=== PATIENT | male | born 1970 | race Caucasian/White ===

== ENCOUNTER 2020-12-21 11:48 | Emergency (ER) | payer OTHER, SELFPAY ==
--- NOTE | ~2020-12-21 | XR_ITS ---
EXAMINATION: XR HAND, LEFT CLINICAL INFORMATION: Trauma, crush injury. COMPARISON: None TECHNIQUE: PA, lateral, and oblique views of the left hand. FINDINGS: There is a dorsal soft tissue wound at level metacarpal neck. There is no visible radiopaque soft tissue foreign body. The underlying bony structures appear intact without acute fracture or destructive process or dislocation. There may be old healed fracture shaft fifth metacarpal. No acute radiolucent fracture line. No focal arthropathy. No erosive changes. XR/XR hand LT min 3V IMPRESSION: Dorsal soft tissue wound with overlying dressing. No visible fracture, dislocation, or radiopaque soft tissue foreign body.
[2020-12-21 11:51] VITALS: BP 168/101; PULSE 105; RESP 18; TEMP 36.1; O2SAT 94; BMI 27.3
--- NOTE | 2020-12-21 14:14 | ED.GENADULT ---
HPI - General Adult General Chief complaint: Wound/Laceration Stated complaint: lac lt hand Source: patient Mode of arrival: ambulatory Limitations: no limitations History of Present Illness HPI narrative: 50-year-old male with history of hypertension is here today after sustaining work accident. He was working and large metal pipe fell off on his left hand. Patient does not remember when he had his last tetanus booster. Patient reports pain when moving his 3rd and 4th finger. Patient denies any other injury or sx. . Onset (ago): hour(s) Location: right and upper extremity (Hand) Severity: moderate Severity scale (1-10): 10 Quality: aching Pain Consistency: constant Relieving factors: immobilization Related Data Previous Rx's Medication Instructions Recorded cephalexin 500 mg capsule 500 mg PO QID 7 Days #28 cap 12/21/20 Allergies Allergy/AdvReac Type Severity Reaction Status Date / Time No Known Allergies Allergy Unverified 11/25/19 15:16 [No Known Allergies*] Review of Systems Review of Systems: Constitutional : No Weight loss, No Fever, No Chills, No Night Sweats, No Fatigue, No Malaise ENT/Mouth : No Hearing loss, No Ear Pain, No Nasal Congestion, No Sinus Pain, No Hoarseness, No sore throat, No Rhinorrhea, No Swallowing Difficulty Eyes: No Eye Pain, No Swelling, No Redness, No Foreign Body, No Discharge, No Vision Changes Cardiovascular : No Chest Pain, No SOB, No Dyspnea on Exertion, No Orthopnea, No Edema, No Palpitations Respiratory : No Cough, No Sputum, No Wheezing, No Smoke Exposure, No Dyspnea Gastrointestinal : No Nausea, No Vomiting, No Diarrhea, No Constipation, No abdominal Pain, No Hematochezia, No Melena Genitourinary : no irregular bleeding, No Dysuria, No Urinary Frequency, No Hematuria, No Urinary Incontinence, No Urgency, No Flank Pain, No Urinary Flow Changes, No Hesitancy Musculoskeletal : No joint pain, No Myalgias, No Joint Swelling Skin : No Skin Lesions, No rash, right hand laceration Neuro : No Weakness, No Numbness, No Paresthesias, No Loss of Consciousness, No Dizziness, No Headache Yes all other systems are reviewed and are negative [facility] Social History Social History Alcohol intake: current Patient Tobacco Use Status: Current everyday Tobacco user Use of substances other than those prescribed or required for medical reasons: No Advance Directives: No Advance Directives Information Provided: Yes Physical Exam Vital Signs: Vital Signs: Last Vital Signs Temp 97 F 12/21/20 11:51 Pulse 80 12/21/20 14:43 Resp 20 12/21/20 14:43 BP 173/114 H 12/21/20 14:43 Pulse Ox 97 12/21/20 14:43 Body Mass Index 27.3 Const: General: healthy appearing, no acute distress and well developed Nutritional Appearance: well nourished Orientation/consciousness: patient oriented x3 HENMT: Head: Yes normal to inspection, Yes normocephalic and Yes atraumatic Neck: Neck: Yes normal visual inspection, Yes full ROM and Yes trachea midline Thyroid: Thyroid normal Resp: Effort & Inspection: normal respiratory effort and able to speak in complete sentences Auscultation: clear to auscultation bilaterally Cardio: Rate: regular rate Rhythm: regular rhythm GI: Inspection: Yes normal to inspection and No distended Palpation (GI): No hepatosplenomegaly present Auscultation: normal bowel sounds Skin: General skin exam: elasticity normal, turgor normal, dry skin and other (Laceration right hand) Neuro: General: patient oriented x3 Extrem: Right upper extremity: Extremity exam: right hand (Right hand laceration decreased ROM to 3rd and 4th finger) Left upper extremity: normal to inspection, full ROM and normal capillary refill Course Course Course Narrative: 50-year-old male with past medical history of hypertension is here today after work injury. Large metal pipe fell on to his left hand. 3.5 cm linear laceration to the top of his hand just below 2nd and 3rd knuckle. Bleeding under control. Patient reports that he does not remember when he had his last tetanus. Tetanus, x-ray, medicated with lidocaine and ibuprofen set up for suture. Reevaluation(s) Reevaluation #1: X-ray negative for any acute findings. Area sutured,will apply Xeroform dressing. Patient can return for suture removal in 7-10 days. Cephalexin for 7 days given. First dose given in the ER Procedures Laceration Laceration 1: Site: hand Side (If applicable): left Medical Decision Making Imaging Data Left hand x-ray: Attestation: I personally reviewed and interpreted this imaging study as follows: Radiologist's impression: FINDINGS: There is a dorsal soft tissue wound at level metacarpal neck. There is no visible radiopaque soft tissue foreign body. The underlying bony structures appear intact without acute fracture or destructive process or dislocation. There may be old healed fracture shaft fifth metacarpal. No acute radiolucent fracture line. No focal arthropathy. No erosive changes.? Discharge Plan Discharge Clinical Impression: Laceration Patient Disposition: Home, Self-Care Instructions: Head Laceration (ED) Additional Instructions: You were seen here today after sustaining an injury to your left hand. Your laceration was sutured. Your hand x-ray was negative for any acute abnormalities. Make sure you keep the area clean. You were given 1st dose of antibiotic here and please that you complete all of your antibiotics. Your sutures should come out in 7-10 days. You may go to your primary care provider to get them removed or come back here to get them removed. If your see any redness, swelling, increased pain you may return to emergency department or call your PCP. You may return to emergency department if your symptoms will get worse or if you experience any additional concerning symptoms Prescriptions: New cephalexin 500 mg capsule 500 mg PO QID 7 Days Qty: 28 RF: 0 Interventions: ED Discharge Assessment Last Done: 12/21/20 16:10 Discharge Date/Time: 12/21/20 16:13
[2020-12-21] MEDS: Diphth,Pertus(ACell),Tet Adult 0.5 ML SYRINGE IM (14:37)
[2020-12-21] MEDS: Ibuprofen 600 MG TABLET PO (14:38)
[2020-12-21] MEDS: Lidocaine HCl 2 % MPF 5 ML VIAL INFILTRATI (14:41)
[2020-12-21 14:43] VITALS: BP 173/114; PULSE 80; RESP 20; O2SAT 97
[2020-12-21] MEDS: cephALEXin 500 MG CAPSULE PO (15:45)
== END 2020-12-21 16:13 | disposition home or self-care (01) ==
PROVIDERS: Emergency Provider Emergency Medicine
DX: S61.412A Laceration without foreign body of left hand, initial encounter (principal); I10 Essential (primary) hypertension; W20.8XXA Other cause of strike by thrown, projected or falling object, initial encounter; Y93.9 Activity, unspecified; Y92.89 Other specified places as the place of occurrence of the external cause; Y99.0 Civilian activity done for income or pay
CPT/HCPCS: 12002; 73130; 90471; 90715; 99284

== ENCOUNTER 2022-11-03 16:56 | Emergency (ER) | payer OTHER, SELFPAY ==
--- NOTE | ~2022-11-03 | US_ITS ---
EXAMINATION: US ABDOMEN LIMITED CLINICAL INFORMATION: Right upper quadrant pain. COMPARISON: None available. TECHNIQUE: Real-time imaging of the right upper quadrant abdominal viscera. FINDINGS: PANCREAS: The visualized portion of the pancreas head and body are normal, portion of the pancreatic body and tail, not visualized are obscured by bowel gas. LIVER: There is a small cyst in the right lobe of the liver 0.9 x 0.9 x 1.1 cm. The liver is normal in size. The liver contour is normal. Increased echogenicity of the liver parenchyma, this can be seen in the setting of hepatic steatosis or liver parenchymal disease. No focal hepatic lesion. There is no intrahepatic biliary duct dilatation seen. GALLBLADDER: Normal. The gallbladder is physiologically distended without evidence of stones, sludge, polyps, wall thickening or pericholecystic fluid. COMMON BILE DUCT: Normal in caliber measuring 0.6 cm in diameter. RIGHT KIDNEY: Normal. No hydronephrosis. No renal calculi or focal parenchymal lesions. The kidney measures 9.7 cm in maximum dimension. FREE FLUID: None. US/US abdomen limited IMPRESSION: - No ultrasound evidence of gallbladder disease or gallstones. - Increased echogenicity of the liver parenchyma, this can be seen in the setting of hepatic steatosis or liver parenchymal disease. - There is a small cyst in the right lobe of the liver 1.1 cm.
--- NOTE | ~2022-11-03 | XR_ITS ---
EXAMINATION: XR CHEST CLINICAL INFORMATION: Right-sided chest pain, shortness of breath COMPARISON: 04/17/2017 TECHNIQUE: 2 views of the chest were obtained. FINDINGS: No significant abnormality is noted involving the heart, lungs, mediastinum, bony thorax or soft tissues. XR/XR chest 2V IMPRESSION: Unremarkable examination.
--- NOTE | ~2022-11-03 | CT_ITS ---
EXAMINATION: CT abdomen pelvis w IV con CLINICAL INFORMATION: Reason for Exam RLQ pain COMPARISON: No prior CT available for comparison. TECHNIQUE: Multidetector volumetric imaging was performed from the superior aspect of the liver through the pubic symphysis 85 mL Omnipaque 350 injected Sagittal and coronal reformatted images were obtained on the technologist's workstation. This CT examination was performed using dose optimization techniques as appropriate, variously including the following: *Automated exposure control *Adjustment of mA and/or kV according to patient size (this includes techniques or standardized protocols for targeted exams where dose is matched to indication/reason for exam; i.e. extremities or head) *Use of iterative reconstruction technique DLP: 550 mGy-cm FINDINGS: LOWER THORAX: 5 mm nodule left lower lobe image 67 series 4. HEPATOBILIARY: Cyst left lobe of the liver segment 4 1.4 cm. Few other scattered tiny hypodensities subcentimeter, too small to characterize most commonly developing liver cyst as well. No suspicious solid liver lesion. GALLBLADDER: Gallbladder unremarkable. SPLEEN: Spleen is normal in size. PANCREAS: Small atrophic pancreas. STOMACH AND GASTROINTESTINAL TRACT: Stomach is distended filled with fluid and some air. Mild sigmoid diverticulosis without CT evidence of acute diverticulitis. Normal appendix. ADRENALS: No adrenal nodules. KIDNEYS/URETERS: Small 3 mm nonobstructing stone upper calyx left kidney. No hydronephrosis. Perinephric fat are clear. No hydronephrosis, solid mass lesions. URINARY BLADDER: Partially decompressed. PELVIC VISCERA: Unremarkable PERITONEUM: No free air or fluid. LYMPH NODES: No lymphadenopathy. VASCULAR:Abdominal aorta normal in size, no aneurysm found. BONES, ABDOMINAL WALL AND SOFT TISSUES: Age-appropriate changes of the spine and skeletal system, no destructive osteolytic or osteosclerotic bone lesion found CT/CT abdomen pelvis w IV con IMPRESSION: - No CT evidence of acute intra-abdominal process to explain patient's pain symptoms. Normal appendix. - Mild sigmoid diverticulosis without CT evidence of acute diverticulitis. -There is 5 mm nodule left lower lobe. This has not changed from prior CT chest from 04/17/2017 favoring benign. No follow-up is required. - Distended stomach filled with fluid and some air. - Atrophic pancreas. - Liver cysts. - Nonobstructing 3 mm stone upper calyx left kidney.
[2022-11-03 17:21] VITALS: BP 162/100; PULSE 92; RESP 18; TEMP 36.4; O2SAT 94; BMI 27.3
--- NOTE | 2022-11-03 17:22 | ED.ABDPAIN ---
HPI - Abdominal Pain General Chief Complaint: Abdominal Pain Stated Complaint: appendix pain? Time Seen by Provider: 11/03/22 18:45 Source: patient Mode of arrival: ambulatory Limitations: no limitations History of Present Illness HPI narrative: 52 yo male with history of DM recently started metformin here with complaints of right lower quadrant abdominal pain x 1 day with no vomiting/fevers/urinary symptoms. +diarrhea since starting metformin. No previous abdmominal surgeries Related Data Previous Rx's Medication Instructions Recorded cephalexin 500 mg capsule 500 mg PO QID 7 days #28 caps 12/21/20 Allergies Allergy/AdvReac Type Severity Reaction Status Date / Time bee pollen [bee stings] Allergy Anaphylaxis Verified 11/03/22 17:25 walnut Allergy Anaphylaxis Verified 11/03/22 17:25 Review of Systems Review of Systems Yes all other systems are reviewed and are negative Constitutional: Reports no additional constitutional complaints, Denies body ache(s), Denies chills, Denies fever(s), Denies headache(s) and Denies weakness Eyes: Reports no additional eye complaints and Denies change in vision Reports system reviewed and no additional complaints, except as documented, Denies dizziness, Denies headache(s), Denies nasal congestion, Denies nasal discharge and Denies neck pain Cardiovascular: Reports no additional cardiovascular complaints, Denies chest pain, Denies leg edema and Denies dyspnea Respiratory: Reports no additional respiratory complaints, Denies cough and Denies dyspnea Gastrointestinal: Reports no additional gastrointestinal complaints, Reports abdominal pain, Denies diarrhea, Denies nausea and Denies vomiting Genitourinary: Denies urinary incontinence Musculoskeletal: Reports no additional musculoskeletal complaints, Denies back pain, Denies arthralgias, Denies joint swelling, Denies neck pain, Denies numbness and Denies tingling Skin/Breast: Reports system reviewed and no additional complaints, except as docu and Denies rash Reports system reviewed and no additional complaints, except as documented, Denies dizziness, Denies headache(s), Denies numbness, Denies tingling and Denies weakness PMFSH Past Medical History Attestation statement: The following information was validated with the patient. Source: old records reviewed and nursing notes reviewed Social History Social History Alcohol intake: current Patient Tobacco Use Status: Current everyday Tobacco user Advance Directives: No Advance Directives Information Provided: No Physical Exam ED Vital Signs: Vital Signs - 24 hr 11/03/22 17:21 11/03/22 20:21 11/03/22 22:00 Temperature 97.6 F 98.8 F 98.9 F Pulse Rate 92 83 86 Respiratory Rate 18 16 16 Blood Pressure 162/100 H 162/101 H 140/93 H Pulse Oximetry 94 94 94 Oxygen Delivery Method Room Air Room Air Room Air BMI result Body Mass Index 27.3 Const General: cooperative, healthy appearing, comfortable and no acute distress Orientation/consciousness: patient oriented x3 Limitations: no limitations HENMT Head: Yes normal to inspection Ears: hearing grossly normal bilaterally Eyes General: appearance normal, both eyes and all related structures Pupils: Equal, round and reactive pupils present Neck Neck: Yes normal visual inspection and Yes full ROM Chest Chest palpation & inspection: normal inspection of the chest Resp Effort & Inspection: normal respiratory effort Auscultation: clear to auscultation bilaterally Cardio Rate: regular rate Rhythm: regular rhythm Peripheral pulses: Peripheral pulses 2+ throughout GI Inspection: Yes normal to inspection Palpation (GI): Soft to palpation, Tenderness to palpation present (GI) in the RLQ and with rebound tenderness and Guarding due to palpation present (GI) Auscultation: normal bowel sounds General: Yes no CVA tenderness Back/Spine/Pelvis Back: no CVA tenderness Thoracic/Lumbar Spine: thoracic and lumbar spine normal to inspection Skin General skin exam: no rashes or lesions noted Neuro General: patient oriented x3 and moves all extremities Cranial nerves: Yes Equal, round and reactive pupils present Cognition (Neuro): normal cognition Gait exam (Neuro): Normal gait present Extrem General: Yes normal to inspection, Yes no pedal edema and Yes no calf tenderness Course Course Course Narrative: This is an RME: Additional HPI, ROS, PE not included below will be deferred to primary provider. Patient is a 52-year-old male who presents to the emergency department for evaluation of right upper quadrant pain. Onset was 3 days ago, exacerbated with deep breathing and movement, also experiencing diarrhea. Denies exacerbation or alleviation with eating and drinking. Denies nausea/ vomiting. Denies constipation. Denies fevers or chills. Reports recent diagnosis of Type 2 diabetes 2 weeks ago, was started on Metformin. Plan: labs, CXR, RUQ US Reevaluation(s) Reevaluation #1: Labs and urine are unremarkable. CT shows no acute finding. Of note patient recently started metformin. I did discuss with him that sometimes abdominal pain and diarrhea or side effects of metformin. He should discuss this is primary care doctor. Patient is tolerating p.o.. His vitals are stable. Patient will be discharged home with recommendations to follow-up outpatient with primary care. Reviewed worrisome signs and symptoms when to return to the emergency room. Control plan for discharge home. Medical Decision Making Medical Decision Making [facility] Narrative: 52 yo male with history of DM here with one day of RLQ abdominal pain Has TTP to RLQ with rebound and guarding WIll obtain labs, UA, covid screen, CT A/P Differential Diagnosis Differential Diagnoses: The differential diagnosis associated with the presentation includes acute appy, divert, renal colic, pyelo, cholecystitis Admission/Observation Consideration of admission/observation: Escalation of care including admission/observation considered see course of care Lab Data [facility] Lab Attestation statement: I reviewed the patient's lab results. labs are unremarkable 11/03/22 17:50 11/03/22 17:50 Labs: Lab Results 11/03/22 11/03/22 11/03/22 Range/Units 17:50 17:50 20:13 WBC 11.2 H (4.8-10.8) X10*3/uL RBC 5.62 (4.60-5.80) X10*6/uL Hgb 16.6 (14.0-18.0) g/dl Hct 48.2 (42.0-52.0) % MCV 85.8 (80.0-98.0) fL MCH 29.5 (27.0-33.0) pg MCHC 34.4 (31.0-36.0) g/dl RDW 12.6 (11.0-16.0) % Plt Count 311 (160-400) X10*3/uL MPV 10.0 (9.4-12.4) fL Immature Gran % (Auto) 0.4 (0.0-0.4) % Neut % (Auto) 60.9 (45-73) % Lymph % (Auto) 29.6 (20-40) % [place] % (Auto) 5.6 (2-11) % Eos % (Auto) 2.9 (0-4) % Baso % (Auto) 0.6 (0-2) % Lymph # (Auto) 3.3 (1.2-4.9) X10*3/uL [place] # (Auto) 0.6 (0.1-1.2) X10*3/uL Eos # (Auto) 0.3 (0.0-0.4) X10*3/uL Baso # (Auto) 0.1 (0.0-0.2) X10*3/uL Abs Immat Gran (auto) 0.05 H (0.00-0.03) X10*3/uL Absolute Neuts (auto) 6.8 (2.0-8.3) x10*3/uL Absolute Nucleated RBC 0.000 (0.0-0.012) X10*3/uL Nucleated RBC % (auto) 0.0 (0.0-0.2) /100WBC Sodium 144 (135-145) mmol/L Potassium 3.4 (3.3-5.1) mmol/L Chloride 106 (96-108) mmol/L Carbon Dioxide 28 (22-29) mmol/L Anion Gap 13 (12-20) BUN 19 H (9-16) mg/dL Creatinine 0.95 (0.5-1.4) mg/dL Estim Creat Clear Calc 89.9 Estimated GFR > 60 Random Glucose 119 H (60-115) mg/dL Calcium 9.6 (8.4-10.2) mg/dL Total Bilirubin 0.3 (0.0-1.0) mg/dL AST 14 (5-37) U/L ALT 12 (0-40) U/L Alkaline Phosphatase 102 (39-117) U/L Total Protein 7.0 (6.5-8.0) g/dL Albumin 4.2 (3.5-5.0) g/dL Lipase 29 (8-78) U/L Urine Color Urine Appearance Urine pH (5.0-9.0) Ur Specific [place] (1.005-1.025) Urine Protein (Neg-Trace) mg/dL Urine Glucose (UA) (Negative) mg/dL Urine Ketones (Negative) mg/dL Urine Blood (Negative) Urine Nitrite (Negative) Ur Leukocyte Esterase (Negative) COVID-19 (UTE) Negative (Negative) COVID-19 Clin Com See Note 11/03/22 Range/Units 22:17 WBC (4.8-10.8) X10*3/uL RBC (4.60-5.80) X10*6/uL Hgb (14.0-18.0) g/dl Hct (42.0-52.0) % MCV (80.0-98.0) fL MCH (27.0-33.0) pg MCHC (31.0-36.0) g/dl RDW (11.0-16.0) % Plt Count (160-400) X10*3/uL MPV (9.4-12.4) fL Immature Gran % (Auto) (0.0-0.4) % Neut % (Auto) (45-73) % Lymph % (Auto) (20-40) % [place] % (Auto) (2-11) % Eos % (Auto) (0-4) % Baso % (Auto) (0-2) % Lymph # (Auto) (1.2-4.9) X10*3/uL [place] # (Auto) (0.1-1.2) X10*3/uL Eos # (Auto) (0.0-0.4) X10*3/uL Baso # (Auto) (0.0-0.2) X10*3/uL Abs Immat Gran (auto) (0.00-0.03) X10*3/uL Absolute Neuts (auto) (2.0-8.3) x10*3/uL Absolute Nucleated RBC (0.0-0.012) X10*3/uL Nucleated RBC % (auto) (0.0-0.2) /100WBC Sodium (135-145) mmol/L Potassium (3.3-5.1) mmol/L Chloride (96-108) mmol/L Carbon Dioxide (22-29) mmol/L Anion Gap (12-20) BUN (9-16) mg/dL Creatinine (0.5-1.4) mg/dL Estim Creat Clear Calc Estimated GFR Random Glucose (60-115) mg/dL Calcium (8.4-10.2) mg/dL Total Bilirubin (0.0-1.0) mg/dL AST (5-37) U/L ALT (0-40) U/L Alkaline Phosphatase (39-117) U/L Total Protein (6.5-8.0) g/dL Albumin (3.5-5.0) g/dL Lipase (8-78) U/L Urine Color Yellow Urine Appearance Clear Urine pH 6.5 (5.0-9.0) Ur Specific [place] >= 1.030 H (1.005-1.025) Urine Protein Negative (Neg-Trace) mg/dL Urine Glucose (UA) Negative (Negative) mg/dL Urine Ketones Negative (Negative) mg/dL Urine Blood Negative (Negative) Urine Nitrite Negative (Negative) Ur Leukocyte Esterase Negative (Negative) COVID-19 (UTE) (Negative) COVID-19 Clin Com Independent Interpretation I performed an independent interpretation of an: Plain X-Ray, Ultrasound and CT Scan Interpretation: I independently reviewed the CXR, abdominal US, CT A/P and agree with the rad report Radiology Impression Discussion of test interpretation with radiology: I have reviewed the radiologist's reading. Radiologist Impression: [place] [id number] XRay Report Signed Patient: Cecilio Cannon MR#: [id number] : 1970 Acct:[id number] Age/Sex: 52 / M ADM Date: 11/03/22 Loc: .ED Attending Dr: Ordering Physician: Sharlene Al CNP Date of Service: 11/03/22 Procedure(s): XR chest 2V Accession Number(s): [id number] cc: Sharlene Al CNP~ EXAMINATION: XR CHEST CLINICAL INFORMATION: Right-sided chest pain, shortness of breath COMPARISON: 04/17/2017 TECHNIQUE: 2 views of the chest were obtained. FINDINGS: No significant abnormality is noted involving the heart, lungs, mediastinum, bony thorax or soft tissues. XR/XR chest 2V IMPRESSION: Unremarkable examination. Launch?Image [address] [address] Ultrasound Report Signed Patient: Cecilio Cannon MR#: [id number] : 1970 Acct:[id number] Age/Sex: 52 / M ADM Date: 11/03/22 Loc: HO.ED Attending Dr: Ordering Physician: Sharlene Al CNP Date of Service: 11/03/22 Procedure(s): US abdomen limited Accession Number(s): [id number] cc: Sharlene Al CNP~ EXAMINATION: US ABDOMEN LIMITED CLINICAL INFORMATION: Right upper quadrant pain. COMPARISON: None available. TECHNIQUE: Real-time imaging of the right upper quadrant abdominal viscera. FINDINGS: PANCREAS: The visualized portion of the pancreas head and body are normal, portion of the pancreatic body and tail, not visualized are obscured by bowel gas. LIVER: There is a small cyst in the right lobe of the liver 0.9 x 0.9 x 1.1 cm. The liver is normal in size. The liver contour is normal. Increased echogenicity of the liver parenchyma, this can be seen in the setting of hepatic steatosis or liver parenchymal disease. No focal hepatic lesion. There is no intrahepatic biliary duct dilatation seen. GALLBLADDER: Normal. The gallbladder is physiologically distended without evidence of stones, sludge, polyps, wall thickening or pericholecystic fluid. COMMON BILE DUCT: Normal in caliber measuring 0.6 cm in diameter. RIGHT KIDNEY: Normal. No hydronephrosis. No renal calculi or focal parenchymal lesions. The kidney measures 9.7 cm in maximum dimension. FREE FLUID: None. US/US abdomen limited IMPRESSION: ? - No ultrasound evidence of gallbladder disease or gallstones. ? - Increased echogenicity of the liver parenchyma, this can be seen in the setting of hepatic steatosis or liver parenchymal disease. ? - There is a small cyst in the right lobe of the liver 1.1 cm. Cecilio Cannon??52??M??1970 ? Allergy/Adv: bee pollen, walnut Close ED Discharge Packet (Viewable) 12/21/20 15:42 ER Physician Documentation (Draft) Tawanna Ritter - 11/03/22 17:22 Abdomen Ultrasound (Signed) Paul Bonilla - 11/03/22 18:03 Abdomen/Pelvis CT (Signed) Paul Bonilla - 11/03/22 19:44 Chest X-Ray (Signed) Steve Rivera - 11/03/22 17:34 Hand X-Ray (Signed) Alli Brizuela - 12/21/20 14:12 Launch?Image [address] [address] [address] Scan Report Signed Patient: Cecilio Cannon MR#: [id number] : 1970 Acct:[id number] Age/Sex: 52 / M ADM Date: 11/03/22 Loc: HO.ED Attending Dr: Ordering Physician: Tawanna Granda NP Date of Service: 11/03/22 Procedure(s): CT abdomen pelvis w IV con Accession Number(s): [id number] cc: Tawanna Granda NP~ EXAMINATION: CT abdomen pelvis w IV con CLINICAL INFORMATION: Reason for Exam RLQ pain COMPARISON: No prior CT available for comparison. TECHNIQUE: Multidetector volumetric imaging was performed from the superior aspect of the liver through the pubic symphysis 85 mL Omnipaque 350 injected Sagittal and coronal reformatted images were obtained on the technologist's workstation. ? This CT examination was performed using dose optimization techniques as appropriate, variously including the following: *Automated exposure control *Adjustment of mA and/or kV according to patient size (this includes techniques or standardized protocols for targeted exams where dose is matched to indication/reason for exam; i.e. extremities or head) *Use of iterative reconstruction technique DLP: 550 mGy-cm FINDINGS: LOWER THORAX: 5 mm nodule left lower lobe image 67 series 4. HEPATOBILIARY: Cyst left lobe of the liver segment 4 1.4 cm. Few other scattered tiny hypodensities subcentimeter, too small to characterize most commonly developing liver cyst as well. No suspicious solid liver lesion. GALLBLADDER: Gallbladder unremarkable. SPLEEN: Spleen is normal in size. PANCREAS: Small atrophic pancreas. STOMACH AND GASTROINTESTINAL TRACT: Stomach is distended filled with fluid and some air. Mild sigmoid diverticulosis without CT evidence of acute diverticulitis. Normal appendix. ADRENALS: No adrenal nodules. KIDNEYS/URETERS: Small 3 mm nonobstructing stone upper calyx left kidney. No hydronephrosis. Perinephric fat are clear. No hydronephrosis, solid mass lesions. URINARY BLADDER: Partially decompressed. PELVIC VISCERA: Unremarkable PERITONEUM: No free air or fluid. LYMPH NODES: No lymphadenopathy. VASCULAR:Abdominal aorta normal in size, no aneurysm found. BONES, ABDOMINAL WALL AND SOFT TISSUES: Age-appropriate changes of the spine and skeletal system, no destructive osteolytic or osteosclerotic bone lesion found CT/CT abdomen pelvis w IV con IMPRESSION: ? - No CT evidence of acute intra-abdominal process to explain patient's pain symptoms. Normal appendix. ? - Mild sigmoid diverticulosis without CT evidence of acute diverticulitis. ? -There is 5 mm nodule left lower lobe. This has not changed from prior CT chest from 04/17/2017 favoring benign. No follow-up is required. ? - Distended stomach filled with fluid and some air. ? - Atrophic pancreas. ? - Liver cysts. ? - Nonobstructing 3 mm stone upper calyx left kidney. ? Medications Administered Discontinued Medications Generic Name Dose Route Start Last Admin Trade Name Freq PRN Reason Stop Dose Admin Iohexol 100 ml 11/03/22 19:47 11/03/22 19:47 Iohexol 350 Mg/Ml 100 Ml Infus..Btl IV 11/03/22 19:48 85 ml ONCE ONE Administration Morphine Sulfate 4 mg 11/03/22 18:58 11/03/22 20:28 Morphine Sulfate 4 Mg/Ml Cartridge IVPUSH 11/03/22 18:59 4 mg ONCE ONE Administration Protocol Ondansetron HCl 4 mg 11/03/22 18:58 11/03/22 20:27 Ondansetron Hcl 4 Mg/2 Ml Vial IVPUSH 11/03/22 18:59 4 mg ONCE ONE Administration Discharge Plan Discharge Clinical Impression: Abdominal pain Patient Disposition: Home, Self-Care Instructions: Abdominal Pain (ED) Additional Instructions: Yourr CT scan, urine testing and lab work are reassuring It is not uncommon to have diarrhea from metformin You may take Motrin or Tylenol for pain as needed Follow-up with your regular doctor for any continued symptoms Prescriptions: No Action cephalexin 500 mg capsule 500 mg PO QID 7 Days Qty: 28 0RF Referrals: Physician,Unknown J [Primary Care Provider] - 1 week
[2022-11-03 17:54] LABS: MANUAL DIFF FLAG NO
[2022-11-03 18:01] LABS: Basophils Absolute Auto 0.1 X10*3/uL (0.0-0.2); Basophils Percent Auto 0.6 % (0-2); Eosinophils Absolute Auto 0.3 X10*3/uL (0.0-0.4); Eosinophils Percent Auto 2.9 % (0-4); Hematocrit 48.2 % (42.0-52.0); Hemoglobin 16.6 g/dl (14.0-18.0); Imm Gran Abs Auto 0.05 X10*3/uL (0.00-0.03); Imm Gran Pct Auto 0.4 % (0.0-0.4); Lymphocytes Absolute Auto 3.3 X10*3/uL (1.2-4.9); Lymphocytes Percent Auto 29.6 % (20-40); Mean Corpuscular HGB Conc 34.4 g/dl (31.0-36.0); Mean Corpuscular Hemoglobin 29.5 pg (27.0-33.0); Mean Corpuscular Volume 85.8 fL (80.0-98.0); Monocytes Absolute Auto 0.6 X10*3/uL (0.1-1.2); Monocytes Percent Auto 5.6 % (2-11); Neutrophils Absolute Auto 6.8 x10*3/uL (2.0-8.3); Neutrophils Percent Auto 60.9 % (45-73); Platelet Count 311 X10*3/uL (160-400); Red Blood Count 5.62 X10*6/uL (4.60-5.80); Red Cell Distribution Width 12.6 % (11.0-16.0); White Blood Count 11.2 X10*3/uL (4.8-10.8)
[2022-11-03 18:10] LABS: Alanine Aminotransferase 12 U/L (0-40); Albumin Level 4.2 g/dL (3.5-5.0); Alkaline Phosphatase 102 U/L (39-117); Anion Gap 13 (12-20); Aspartate Amino Transferase 14 U/L (5-37); Bilirubin Total 0.3 mg/dL (0.0-1.0); Blood Urea Nitrogen 19 mg/dL (9-16); Calcium 9.6 mg/dL (8.4-10.2); Carbon Dioxide 28 mmol/L (22-29); Chloride 106 mmol/L (96-108); Creatinine Clr Calc Pharmacy 89.9; Estimated Glomerular Filt Rate > 60; Glucose Random 119 mg/dL (60-115); Lipase 29 U/L (8-78); Potassium 3.4 mmol/L (3.3-5.1); Sodium 144 mmol/L (135-145)
[2022-11-03] MEDS: iohexoL 350 MG/ML 100 ML INFUS..BTL IV (19:47)
[2022-11-03 20:21] VITALS: BP 162/101; PULSE 83; RESP 16; TEMP 37.1; O2SAT 94
[2022-11-03] MEDS: ondansetron HCL 4 MG/2 ML VIAL IVPUSH (20:27)
[2022-11-03] MEDS: Morphine Sulfate 4 MG/ML CARTRIDGE IVPUSH (20:28)
--- NOTE | 2022-11-03 20:31 | PC.NURSE ---
Medicated per Mar Notified JEREMY Ribeiro. Will continue to monitor.
[2022-11-03 20:34] LABS: COVID-19 Test Negative (Negative); IDNOW Serial# 08D9AD1C
[2022-11-03 22:00] VITALS: BP 140/93; PULSE 86; RESP 16; TEMP 37.2; O2SAT 94
--- NOTE | 2022-11-03 22:00 | MHC.EDTECH ---
2200 ROUNDING DONE ,VITALS SIGN TAKEN ,PT URINE SAMPLE COLLECTED AND SENT TO LAB .
[2022-11-03 22:46] LABS: Appearance Urine Clear; Color Urine Yellow; Glucose Urine UA Negative (Negative); Leukocyte Esterase Urine Negative (Negative); Nitrite Urine Negative (Negative); PH 6.5 (5.0-9.0); Specific Gravity - Urine >= 1.030 (1.005-1.025); Urine Blood Negative (Negative); Urine Ketones Negative (Negative); Urine Protein Negative (Neg-Trace)
== END 2022-11-03 23:38 | disposition home or self-care (01) ==
PROVIDERS: Nurse Practitioner Family; Emergency Provider Emergency Medicine
DX: R10.31 Right lower quadrant pain (principal); E11.9 Type 2 diabetes mellitus without complications; R06.02 Shortness of breath; R07.9 Chest pain, unspecified; R10.11 Right upper quadrant pain; K76.89 Other specified diseases of liver; N20.0 Calculus of kidney; Z20.822 Contact with and (suspected) exposure to COVID-19
CPT/HCPCS: 36415; 71046; 74177; 76705; 80053; 81003; 83690; 85025; 87635; 96374; 96375; 99283; 99284; J2270; J2405; Q9967

== ENCOUNTER → 2024-03-04 12:04 | Outpatient (BNVA) | payer OTHER, SELFPAY | PROVIDERS: Visit Provider Physician Assistant Medical | DX: S61.223A Laceration with foreign body of left middle finger without damage to nail, initial encounter (principal); T81.33XA Disruption of traumatic injury wound repair, initial encounter; L03.012 Cellulitis of left finger; W31.89XA Contact with other specified machinery, initial encounter | CPT/HCPCS: 10120; 73140; 99204 ==

== ENCOUNTER 2024-03-05 10:36 | Outpatient (AMB) | payer OTHER, SELFPAY ==
--- NOTE | 2024-03-05 10:50 | A.OFFVIS_ITS ---
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 States he was cutting metal on a facing grinder and it kicked backed. He was seen at work connection where xrays were taken and his finger was splinted. He currently has a laceration from his mid DIP to his PIP joint. States it looks better today. He has concern of tendon damage/laceration. He is also having numbness and tingling in his middle finger. He was given ABX. 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 Patient states that he attempted to close the wound on his own, but that it got red and infected, so he was evaluated at work connection, where a piece of glove was removed from his hand. The patient states that his swelling and redness of both improved significantly since yesterday, and denies any purulent drainage from the area. The patient states that he is unable to make a closed fist, as he feels that he may ?rip the cut open?, but he can extend the left middle finger fully. No other acute complaints or concerns at this time. 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 Neuro: Normal sensation of the tips of all digits of the left hand at this time Vascular: Cap refill brisk Pain: Mild tenderness to palpation about the laceration site on the dorsal PIP joint of the left middle finger ROM: Patient was unable to make a closed fist with the left middle finger, but is able to extend the left middle finger fully without difficulty Skin: Approximately 2-3 cm laceration noted on the dorsal aspect of the PIP joint of the left middle finger There is some mild surrounding erythema, no edema noted There is also some serosanguineous discharge noted, no purulence General: No ecchymosis Psych: Appears grossly normal Affect normal Attitude cooperative Results Reviewed Results Reviewed: X-rays obtained in the office today and independently reviewed by me, Fran Guy PA-C, demonstrate no fracture, acute bony abnormality, or radiopaque foreign body of the left middle finger. Assessment & Plan Assessment & Plan (1) Laceration of left middle finger: Code(s): S61.213A - Laceration without foreign body of left middle finger without damage to nail, initial encounter Category: Medical Plan 1. Laceration of left middle finger No evidence of retained foreign body or abscess On antibiotics from work connection Patient is a discussed with Dr. Tavarez, and a collaborative treatment plan was formed: At this time, patient was informed that I do not feel he acutely require surgery, but he should follow-up with us closely for reassessment and potential need for surgery down the road Patient is educated that he should keep the wound clean, dry, intact, and dr madeline while out and about with a thin layer of antibiotic ointment Patient is educated that I will be refilling his antibiotics so that they will cover him until next visit Patient was amenable to this Patient will follow-up in 1 week for wound check and reassessment, sooner with any acute concerns Orders: Orders XR hand LT min 3V Today M79.642 - Pain in left hand Medications: Refilled doxycycline monohydrate 100 mg PO BID 20 caps 0RF Coding Level of Care Code New Pt Level 3 (35834) Diagnoses Laceration of left middle finger S61.213A
[2024-03-05 10:51] VITALS: BMI 25.1
== END 2024-03-05 11:39 | disposition home or self-care (01) ==
DX: S61.213A Laceration without foreign body of left middle finger without damage to nail, initial encounter (principal)
CPT/HCPCS: 99203

== ENCOUNTER 2024-03-05 10:36 | Outpatient (REF) | payer OTHER, SELFPAY ==
--- NOTE | ~2024-03-05 | XR_ITS ---
CLINICAL HISTORY: M79.642 - Pain in left hand Three views of the left hand. COMPARISON: None FINDINGS: Distal radius and ulna appear intact. Carpals, metacarpals and phalanges appear intact and normal in alignment. Degenerative changes of the 1st CMC joint with joint space narrowing and small osteophytes. Interphalangeal joint space narrowing with osteophytes most pronounced of the DIP joints. IMPRESSION: 1. No radiographic evidence of acute injury to the left hand. 2. 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 This document has been electronically signed by: Rishabh Felix MD on 03/08/2024 14:42:25
== END 2024-03-05 10:37 | disposition home or self-care (01) ==
LOC: HO.HOSX 10:36
DX: M79.642 Pain in left hand (principal); S61.213A Laceration without foreign body of left middle finger without damage to nail, initial encounter
CPT/HCPCS: 73130; 99202

== ENCOUNTER → 2024-03-05 11:08 | Outpatient (BNV) | payer OTHER, SELFPAY | PROVIDERS: Visit Provider Radiology Diagnostic Radiology | DX: M18.12 Unilateral primary osteoarthritis of first carpometacarpal joint, left hand (principal) | CPT/HCPCS: 73130 ==

== ENCOUNTER 2024-03-11 08:48 | Outpatient (AMB) | payer OTHER, SELFPAY ==
--- NOTE | 2024-03-11 08:49 | MHC.OFFVIS ---
Vital Signs 03/11/24 08:53 Height 5 ft 9 in Weight 170 lb BMI 25.1 Intake Visit Reasons: OV f/u -laceration left middle finger-DOI 03/02/24 Intake Note: Cecilio 54 year old male who is ambidextrous, presents today for his W/C injury: laceration to his left middle finger DOI 03/02/24. Patient presents today for a wound check. Patient reports he thinks his blood pressure medication may be the reason his wound has not closed and fully healed. He expresses pain with flexion and extension of the left middle finger. Allergies bee pollen [bee stings] Allergy (Verified 03/11/24 08:53) Anaphylaxis walnut Allergy (Verified 03/11/24 08:53) Anaphylaxis HPI HPI OV f/u -laceration left middle finger-DOI 03/02/24: Details: Patient is a 54-year-old male who presents for evaluation of laceration of left middle finger, date of injury 03/02/2024. 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 Patient states that he attempted to close the wound on his own, but that it got red and infected, so he was evaluated at work connection, where a piece of glove was removed from his hand. The patient states that his swelling and redness of both improved significantly since yesterday, and denies any purulent drainage from the area. The patient states that he is unable to make a closed fist, as he feels that he may ?rip the cut open?, but he can extend the left middle finger fully. Patient expresses concern that the laceration has not fully healed since previous evaluation, and states that this may be due to his blood pressure. No other acute complaints or concerns at this time. 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 Neuro: Normal sensation of the tips of all digits of the left hand at this time Vascular: Cap refill brisk Pain: Mild tenderness to palpation about the laceration site on the dorsal PIP joint of the left middle finger ROM: Patient was unable to make a closed fist with the left middle finger, but is able to extend the left middle finger fully without difficulty Skin: Approximately 2-3 cm laceration noted on the dorsal aspect of the PIP joint of the left middle finger There is no erythema There is also some scant serosanguineous discharge noted, no purulence General: No ecchymosis Psych: Appears grossly normal Affect normal Attitude cooperative Assessment & Plan Assessment & Plan (1) Laceration of left middle finger: Code(s): S61.213A - Laceration without foreign body of left middle finger without damage to nail, initial encounter Category: Medical Plan 1. Laceration of left middle finger No evidence of retained foreign body or abscess On antibiotics from work connection Patient is a discussed with Dr. Tavarez, and a collaborative treatment plan was formed: At this time, patient was informed that I do not feel he acutely require surgery, but he should follow-up with us closely for reassessment and potential need for surgery down the road Patient is educated that he should keep the wound clean, dry, intact, and dressed while out and about with a thin layer of antibiotic ointment Patient states that he has more than enough antibiotics to cover him until next visit Patient is educated on the potential wound healing ramifications of uncontrolled diabetes, as the patient states he has not been able to take his blood sugar in his not been taking diabetes medication for some time due to not having health insurance Patient was amenable to this Patient will follow-up in 1 week for wound check and reassessment, sooner with any acute concerns Coding Level of Care Code Est Pt Level 3 (56083) Diagnoses Laceration of left middle finger S61.213A
[2024-03-11 08:53] VITALS: BMI 25.1
== END 2024-03-11 09:12 | disposition home or self-care (01) ==
LOC: HO.HOS 08:48
DX: S61.213A Laceration without foreign body of left middle finger without damage to nail, initial encounter (principal)
CPT/HCPCS: 99213

== ENCOUNTER → 2024-03-11 08:48 | Outpatient (BNVA) | payer OTHER, SELFPAY | DX: S61.213A Laceration without foreign body of left middle finger without damage to nail, initial encounter (principal) | CPT/HCPCS: 99212 ==

== ENCOUNTER 2024-03-16 09:23 | Outpatient (AMB) | payer OTHER, SELFPAY ==
[2024-03-16 09:27] VITALS: BMI 25.1
--- NOTE | 2024-03-16 09:27 | MHC.OFFVIS ---
Vital Signs 03/16/24 09:27 Height 5 ft 9 in Weight 170 lb BMI 25.1 Intake Visit Reasons: OV f/u -laceration left middle finger-DOI 03/02/24 Intake Note: Cecilio Breen54 year old male who is ambidextrous, presents today for a follow up visit and wound check s/p laceration to his left middle finger WC DOI 03/02/24. States he was cutting metal on a razor grinder and it kicked back. Patient reports that his finger has not changed much, the laceration continues to open occasionally with flexion and ooze clear fluid. Allergies bee pollen [bee stings] Allergy (Verified 03/11/24 08:53) Anaphylaxis walnut Allergy (Verified 03/11/24 08:53) Anaphylaxis HPI HPI OV f/u -laceration left middle finger-DOI 03/02/24: Details: Cecilio 54 year old male who is ambidextrous, presents today for a follow up visit and wound check s/p laceration to his left middle finger WC DOI 03/02/24. States he was cutting metal on a razor grinder and it kicked back. Patient reports that his finger has not changed much, the laceration continues to open occasionally with flexion and ooze clear fluid. 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 Neuro: Normal sensation of the tips of all digits of the left hand at this time Vascular: Cap refill brisk Pain: No tenderness to palpation about the laceration site on the dorsal PIP joint of the left middle finger ROM: Patient is able to make a closed fist and extend all digits of the left hand fully and without difficulty Skin: Approximately 2-3 cm laceration noted on the dorsal aspect of the PIP joint of the left middle finger There is no erythema Wound appears closed over, no discharge at this time General: No ecchymosis Psych: Appears grossly normal Affect normal Attitude cooperative Assessment & Plan Assessment & Plan (1) Laceration of left middle finger: Code(s): S61.213A - Laceration without foreign body of left middle finger without damage to nail, initial encounter Category: Medical Plan 1. Laceration of left middle finger No evidence of retained foreign body or abscess On antibiotics from work connection Patient appears to be recovering well from his injury Patient is educated that he should keep the wound clean, dry, intact, and dressed while out and about with a thin layer of antibiotic ointment No further antibiotics required Patient is educated on the potential wound healing ramifications of uncontrolled diabetes, as the patient states he has not been able to take his blood sugar in his not been taking diabetes medication for some time due to not having health insurance Patient was amenable to this Patient will follow-up in 2-3 week for wound check and reassessment, sooner with any acute concerns Coding Level of Care Code Est Pt Level 3 (15572) Diagnoses Laceration of left middle finger S61.213A
== END 2024-03-16 09:39 | disposition home or self-care (01) ==
DX: S61.213A Laceration without foreign body of left middle finger without damage to nail, initial encounter (principal)
CPT/HCPCS: 99213

== ENCOUNTER → 2024-03-16 09:23 | Outpatient (BNVA) | payer OTHER, SELFPAY | DX: S61.213D Laceration without foreign body of left middle finger without damage to nail, subsequent encounter (principal) | CPT/HCPCS: 99212 ==

== ENCOUNTER → 2024-05-17 10:09 | Outpatient (BNVA) | payer OTHER, SELFPAY | PROVIDERS: Visit Provider Physician Assistant Medical | DX: S43.111D Subluxation of right acromioclavicular joint, subsequent encounter (principal); W22.8XXD Striking against or struck by other objects, subsequent encounter; R51.9 Headache, unspecified | CPT/HCPCS: 73200; 99203 ==

== ENCOUNTER → 2024-05-24 10:34 | Outpatient (BNVA) | payer OTHER, SELFPAY | PROVIDERS: Visit Provider Physician Assistant Medical | DX: S43.111D Subluxation of right acromioclavicular joint, subsequent encounter (principal); W22.8XXD Striking against or struck by other objects, subsequent encounter | CPT/HCPCS: 99213 ==

== ENCOUNTER 2024-05-25 06:49 | Outpatient (REF) | payer OTHER, SELFPAY ==
--- NOTE | ~2024-05-25 | MR_ITS ---
EXAMINATION: MRI RIGHT SHOULDER WITHOUT CONTRAST HISTORY: PAIN W/MOVEMENT RT SHOULDER NUMBNESS T O FINGERS COMPARISON: Correlation is made with a CT of the right shoulder dated 05/17/2024. TECHNIQUE: Coronal T1, T2, and fat suppressed T2, axial fat suppressed proton density, and sagittal T2 weighted MR images of the right shoulder were obtained. FINDINGS: The examination is markedly limited by patient motion. Bone Marrow: Bone marrow signal intensity is normal. Joint effusion: There is no glenohumeral joint effusion. Glenohumeral joint: The glenohumeral joint is difficult to evaluate due to patient motion. AC joint: There is mild degenerative change of the AC joint. Supraspinatus muscle/tendon: There is mild intrasubstance increased T2 signal intensity within the distal tendon consistent with tendinosis. No full-thickness tear is seen. Normal muscle bulk. Infraspinatus muscle/tendon: The infraspinatus tendon is intact. Normal muscle bulk. Teres minor muscle/tendon: The teres minor tendon is intact. Normal muscle bulk. Subscapularis muscle/tendon: The subscapularis tendon is intact. Normal muscle bulk. Biceps tendon: The biceps tendon is intact and normally located. Glenoid labrum: The glenoid labrum is grossly unremarkable in appearance, although evaluation is limited by lack of a joint effusion. Other findings: There is a small amount of fluid in the subacromial bursa. MR/MR shoulder RT wo con IMPRESSION: Markedly limited examination due to patient motion. Tendinosis of the distal supraspinatus tendon. There is a small amount of fluid in the subacromial bursa of uncertain significance. A bursal surface partial tear of the supraspinatus tendon is not excluded. Electronically signed by: Bartolo Dias MD 05/25/2024 09:40 AM EDT
--- NOTE | ~2024-05-25 | XR_ITS ---
EXAMINATION: XR SCREENING FILM FOR MR HISTORY: HEAD TSP. R/O FOREIGN BODY EYES/MOUTH COMPARISON: There are no prior studies for comparison. FINDINGS: AP and lateral views of the skull and AP and lateral views of the thoracic spine were obtained to evaluate for radiopaque foreign body prior to MRI. Imaging of the skull demonstrates no radiopaque foreign body. The visualized paranasal sinuses are clear. No radiopaque foreign body is seen in the thoracic spine. The vertebral bodies maintain normal height and alignment. There is mild degenerative disc disease with disc space narrowing and osteophyte formation. XR/XR pre mri screening IMPRESSION: No evidence of radiopaque foreign body in the skull or thoracic spine. Electronically signed by: Bartolo Dias MD 05/25/2024 07:39 AM EDT
== END 2024-05-25 06:50 | disposition home or self-care (01) ==
LOC: HO.MRI 06:49
PROVIDERS: Absent Provider Radiology Diagnostic Radiology; Visit Provider Internal Medicine
DX: M25.511 Pain in right shoulder (principal)
CPT/HCPCS: 73221

== ENCOUNTER → 2024-05-25 08:03 | Outpatient (BNV) | payer OTHER, SELFPAY | PROVIDERS: Absent Provider Radiology Diagnostic Radiology; Visit Provider Radiology Diagnostic Radiology | DX: M67.813 Other specified disorders of tendon, right shoulder (principal) | CPT/HCPCS: 73221 ==

== ENCOUNTER → 2024-05-27 16:02 | Outpatient (BNVA) | payer OTHER, SELFPAY | PROVIDERS: Visit Provider Physician Assistant Medical | DX: S43.111D Subluxation of right acromioclavicular joint, subsequent encounter (principal); W22.8XXD Striking against or struck by other objects, subsequent encounter; R51.9 Headache, unspecified | CPT/HCPCS: 99213 ==

== ENCOUNTER → 2024-06-10 11:20 | Outpatient (BNVA) | payer OTHER, SELFPAY | PROVIDERS: Visit Provider Physician Assistant Medical | DX: S43.111D Subluxation of right acromioclavicular joint, subsequent encounter (principal); W22.8XXD Striking against or struck by other objects, subsequent encounter | CPT/HCPCS: 99213 ==

== ENCOUNTER 2024-06-13 09:42 | Outpatient (REF) | payer OTHER, SELFPAY ==
--- NOTE | ~2024-06-13 | MR_ITS ---
CLINICAL HISTORY: pain w-movement rt shoulder and numbness MR right shoulder without gadolinium Comparison: 05/25/2024 Findings: No acute fractures. No pathologic bone lesions. No significant degenerative changes. Type II acromion. No joint effusion. The supraspinatus, infraspinatus, subscapularis, and teres minor tendons are intact. The long head of biceps is intact. No tears of the glenoid labrum. IMPRESSION: Unremarkable right shoulder MRI. This document has been electronically signed by: Macario Minaya MD on 06/14/2024 09:04:08
== END 2024-06-13 09:43 | disposition home or self-care (01) ==
LOC: HO.MRI 09:42
PROVIDERS: Visit Provider Internal Medicine
DX: M25.511 Pain in right shoulder (principal)
CPT/HCPCS: 73221

== ENCOUNTER → 2024-06-13 10:05 | Outpatient (BNV) | payer OTHER, SELFPAY | PROVIDERS: Visit Provider Specialist | DX: M25.511 Pain in right shoulder (principal); R20.2 Paresthesia of skin | CPT/HCPCS: 73221 ==

== ENCOUNTER → 2024-06-17 13:24 | Outpatient (BNVA) | payer OTHER, SELFPAY | PROVIDERS: Visit Provider Physician Assistant Medical | DX: H93.11 Tinnitus, right ear (principal); M25.511 Pain in right shoulder; M54.9 Dorsalgia, unspecified | CPT/HCPCS: 72052; 99213 ==

== ENCOUNTER → 2024-07-01 11:12 | Outpatient (BNVA) | payer OTHER, SELFPAY | PROVIDERS: PCP Student in an Organized Health Care Education/Training Program; Visit Provider Physician Assistant Medical | DX: S43.111D Subluxation of right acromioclavicular joint, subsequent encounter (principal); S29.019D Strain of muscle and tendon of unspecified wall of thorax, subsequent encounter; S46.811D Strain of other muscles, fascia and tendons at shoulder and upper arm level, right arm, subsequent encounter; W22.8XXD Striking against or struck by other objects, subsequent encounter | CPT/HCPCS: 99213 ==

== ENCOUNTER 2024-07-07 12:46 | Outpatient (AMB) | payer OTHER, SELFPAY ==
--- NOTE | 2024-07-07 12:50 | A.OFFVIS_ITS ---
Vital Signs 07/07/24 12:53 Height 5 ft 9 in Weight 170 lb BMI 25.1 Handedness Right Intake Visit Reasons: Newprob-Right Shoulder injury-DOI 05/04/24 Intake Note: Blair is a 54 year old right hand dominant male who presents today for a new problem visit due to a work related injury to the right shoulder on 05/04/24. Patient reports that he was struck in the right shoulder by a heavy object while at work, we was seen and evaluated by the work connection. He was given simple ROM and Pendulum exercises and an MRI was ordered. He states that the exercises did help. He finds relief after PT but them notices his pain coming back. Patient finds relief with taking cyclobenzaprine. 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 Physical Exam Vital Signs: BMI result Body Mass Index 25.1 Const Other: Well-nourished well-developed very friendly male awake alert and oriented x3 in no acute distress Extrem Other: Right shoulder examination shows almost full range motion when compared to his left shoulder, 5/5 strength with supraspinatus testing, positive impingement signs, no instability Results Reviewed Results Reviewed: MRI of the patient's right shoulder shows a type 2 acromion, signal change within the supraspinatus tendon most likely due to rotator cuff tendinosis, no rotator cuff tearing noted Assessment & Plan Assessment & Plan (1) Impingement of right shoulder: Code(s): M25.811 - Other specified joint disorders, right shoulder Category: Medical Plan Mr. Cannon presents with right shoulder pain due to impingement syndrome and rotator cuff tendinosis. I had a lengthy discussion with the patient regarding the treatment options. He wishes to hold off on a cortisone injection if at all possible. I agree with this plan. He will continue with his physical therapy exercises. I did give him a prescription for a Medrol Dosepak. From my standpoint the patient can return to work when he feels comfortable doing so. I will see him back in 6-8 weeks' time for repeat clinical examination. If his symptoms have not improved at that time we will further discuss the risks and benefits of a cortisone injection. I spent 21 minutes in reviewing the patient's records and imaging studies, seeing the patient and documenting in the medical record. Medications: New methylprednisolone (Medrol (Marcos)) PO PER PKG DIR 21 ea 0RF Coding Level of Care Code New Pt Level 3 (52304) Complex EM visit Add On G2211 Diagnoses Impingement of right shoulder M25.811
[2024-07-07 12:53] VITALS: BMI 25.1
== END 2024-07-07 13:06 | disposition home or self-care (01) ==
LOC: HO.HOS 12:47
PROVIDERS: Visit Provider Orthopaedic Surgery
DX: M25.811 Other specified joint disorders, right shoulder (principal)
CPT/HCPCS: 99213; G2211

== ENCOUNTER → 2024-07-07 12:46 | Outpatient (BNVA) | payer OTHER, SELFPAY | PROVIDERS: Visit Provider Orthopaedic Surgery | DX: M25.811 Other specified joint disorders, right shoulder (principal) | CPT/HCPCS: 99212 ==

== ENCOUNTER → 2024-07-15 09:31 | Outpatient (BNVA) | payer OTHER, SELFPAY | PROVIDERS: PCP Student in an Organized Health Care Education/Training Program; Visit Provider Physician Assistant Medical | DX: S06.0X0D Concussion without loss of consciousness, subsequent encounter (principal); S43.111D Subluxation of right acromioclavicular joint, subsequent encounter; W22.8XXD Striking against or struck by other objects, subsequent encounter; M54.12 Radiculopathy, cervical region | CPT/HCPCS: 99213 ==

== ENCOUNTER → 2024-08-05 09:01 | Outpatient (BNVA) | payer OTHER, SELFPAY | PROVIDERS: PCP Internal Medicine; Visit Provider Physician Assistant Medical | DX: M25.511 Pain in right shoulder (principal); H93.13 Tinnitus, bilateral | CPT/HCPCS: 99213 ==

== ENCOUNTER 2024-08-10 08:25 | Outpatient (REF) | payer OTHER, SELFPAY ==
--- NOTE | 2024-08-10 08:32 | EMG_ITS ---
Right median and ulnar motor and sensory studies were performed. Right radial and median and lateral antecubital brachial sensory studies were performed, and paraspinal muscles were tested with a needle. IMPRESSION: 1. Ovmr-eg-bfwjxtvo right median neuropathy across carpal tunnel. 2. Mild right ulnar neuropathy across cubital tunnel. MD RAY Hazel/JAYY / [phone]
== END 2024-08-10 08:26 | disposition home or self-care (01) ==
LOC: HO.NEURO 08:25
PROVIDERS: Visit Provider Physician Assistant Medical
DX: M25.511 Pain in right shoulder (principal); G56.11 Other lesions of median nerve, right upper limb; G56.21 Lesion of ulnar nerve, right upper limb
CPT/HCPCS: 95886; 95910

== ENCOUNTER → 2024-08-12 15:04 | Outpatient (BNVA) | payer OTHER, SELFPAY | PROVIDERS: PCP Student in an Organized Health Care Education/Training Program; Visit Provider Physician Assistant Medical | DX: S43.111D Subluxation of right acromioclavicular joint, subsequent encounter (principal); W22.8XXD Striking against or struck by other objects, subsequent encounter; H93.13 Tinnitus, bilateral | CPT/HCPCS: 99213 ==

== ENCOUNTER 2024-08-18 08:37 | Outpatient (AMB) | payer OTHER, SELFPAY ==
[2024-08-18 08:46] VITALS: BMI 25.1
--- NOTE | 2024-08-18 08:46 | A.OFFVIS_ITS ---
Vital Signs 08/18/24 08:46 Height 5 ft 9 in Weight 170 lb BMI 25.1 Intake Visit Reasons: OV- RT shoulder injury, WC 05/04/24 Intake Note: Cecilio is a 54 year old right hand dominant male who presents with complaints of continued right shoulder pain. The patient has did try a Medrol Dosepak which gave him short-term relief. He has not yet returned to work. He has not had a cortisone injection in the past. 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 Physical Exam Vital Signs: BMI result Body Mass Index 25.1 Extrem Other: Right shoulder examination shows slightly decreased range of motion when compared to his left shoulder, 5/5 strength with supraspinatus testing, discomfort with resisted forward flexion, no instability Office Procedures AMB Joint Injection/Aspiration Joint Injection/Aspiration Primary Site: right shoulder Prep: site was prepped using aseptic technique Injected: 40 mg of, DepoMedrol and 1% plain lidocaine Procedure: The patient tolerated the procedure well Coding 91826 - Large joint Procedure code (CPT) selection complete Assessment & Plan Assessment & Plan (1) Right shoulder pain: Code(s): M25.511 - Pain in right shoulder Category: Medical Plan Mr. Cannon presents with right shoulder pain due to rotator cuff tendinitis. The risks and benefits of a right shoulder cortisone injection were discussed at length with the patient. The patient wished to proceed. He tolerated the injection well. He will continue with his stretching program to prevent stiffness. The patient's right shoulder MRI does not show a surgically correctable abnormality. Thus, if the cortisone injection does not give him significant relief I am not sure that I have much else to offer him. If the injection does give him relief he can return to work as he feels fit to do so. Feel free to call me at any time should questions regarding his orthopedic management arise. I spent 21 minutes in reviewing the patient's records and imaging studies, seeing the patient and documenting in the medical record. Orders: Orders AMB Joint Injection/Aspiration Today M25.511 - Pain in right shoulder Coding Level of Care Code Est Pt Level 3 (97734) Complex EM visit Add On G2211 Diagnoses Right shoulder pain M25.511 CPT Codes Coding - 45720 Large joint: 55009 - Large joint ([id number])
== END 2024-08-18 09:19 | disposition home or self-care (01) ==
LOC: HO.HOS 08:37
PROVIDERS: PCP Student in an Organized Health Care Education/Training Program; Visit Provider Orthopaedic Surgery
DX: M25.511 Pain in right shoulder (principal)
CPT/HCPCS: 20610; 99213

== ENCOUNTER → 2024-08-18 08:37 | Outpatient (BNVA) | payer OTHER, BC, SELFPAY | PROVIDERS: PCP Student in an Organized Health Care Education/Training Program; Visit Provider Orthopaedic Surgery | DX: M25.511 Pain in right shoulder (principal) | CPT/HCPCS: 20610; 99212; J1010; J2003 ==

== ENCOUNTER 2024-08-18 09:57 | Outpatient (REF) | payer BC, SELFPAY | END 2024-08-18 09:58 | disposition home or self-care (01) | LOC: HO.SH 09:57 | PROVIDERS: Absent Provider Physician Assistant Medical; PCP Student in an Organized Health Care Education/Training Program; Visit Provider Student in an Organized Health Care Education/Training Program | DX: Z01.118 Encounter for examination of ears and hearing with other abnormal findings (principal); H90.3 Sensorineural hearing loss, bilateral; H93.13 Tinnitus, bilateral | CPT/HCPCS: 92557 ==

== ENCOUNTER → 2024-08-26 09:16 | Outpatient (BNVA) | payer OTHER, SELFPAY | PROVIDERS: PCP Student in an Organized Health Care Education/Training Program; Visit Provider Physician Assistant Medical | DX: H93.13 Tinnitus, bilateral (principal); M89.8X1 Other specified disorders of bone, shoulder; M75.41 Impingement syndrome of right shoulder | CPT/HCPCS: 99213 ==

== ENCOUNTER 2024-09-13 08:48 | Outpatient (RCR) | payer OTHER, BC, SELFPAY ==
[2024-06-22 08:07] VITALS: BP 135/97; PULSE 92; O2SAT 96
--- NOTE | 2024-06-22 12:10 | MHC.PT.EP ---
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 THE Pt REPORTS PAIN IN HIS Rt SH COMPLEX, Rt CERV REGION, DECR AND FREQUENT Rt SUB OCC- OCCIP MANNING. HE HAS DECR AROM CERV REGION WELL END RANGE Rt SH . 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 HE HAS DECR POSTURAL AWARENESS AND HIS INTERMITTENT Rt UE RADIC SXS ALONG C7-/C8 DERM . HE IS LIMITED W ALL ADLs, DIFFIC SLEEPING, PUSHING/PULLING/LIFTING. THE Pt AGREES W PT POC AND WE WILL PROCEED ACCORDINGLY TO ADDRESS THE ABOVE FINDINGS AND MAXIMIZE FUNCTIONAL INDEPENDENCE. Frequency and Duration: The patient will be seen 2 x WK x 5 WKS Short Term Goals: *DECR Rt SH PAIN TO 2-3/10 AND DECR Rt UE RADIC SXS BY 75% *Pt INDEP W SELF -POSTURAL CORRECTION *INITIATE HEP *WFL CERV AND Rt SH AROM Detention Goals: *Pt INDEP HEP AND SELF SX MGMT TECHN *Pt DEMON EFFICIENT BODY MEC/ POSTURE W 3:3 SIMUL ADLs/WORK TASKS *IMPROVE NPDI, AT EVAL *Pt RESUME REG ADLs, SLEEP *Rt UE STRENGTH INCR BY 1 GRADE Treatment Plan: Modalities to reduce pain, spasms and effusion. Manual therapy to restore motion and function. Therapeutic exercise to improve strength and flexibility. Neuromuscular re-education for posture and balance. Therapeutic activities to return to functional activities of daily living. Electronically signed by: OCTAVIANO PALMIRA,PT Please sign and return to therapist. Thank you for your referral.
--- NOTE | 2024-12-24 13:53 | MHC.PT.DC ---
[facility] [place] Office [place] Office [place] Office [address] Enid Patel [address] [phone] F: [phone] F: [phone] F: [phone] F: [phone] Physical Therapy Discharge Report Diagnosis: CERVICALGIA Date of Surgery: Date of Evaluation: 06/22/24 Date of Discharge: 10/13/24 Treatments to Date: 16 Cancellations to Date: 3 No Shows to Date: Discharge Status: Independent with HEP Patient Elected to Stop Recommend MD Follow-up Discharge Summary: THERESA HAS PROGRESSED IN PT EVIDENT IN IMPROVED CERVICAL AND Rt SH AROM- HE HAS RELATIVELY RESOLVED CERVICAL SXS ((+) RESULTS/ CENTRALIZATION W CERV TXN) , DENIES RADICUALR SXS, AND IS INDEP W POSTURAL CORRECTION TO NEUTRAL- HOWEVER, HE HAS PERSISTENT STRENGTH DEFICIT IN Rt SH IR/ HORIZ ADD AND HIS PAIN HAS LOCALIZED TO Rt MEDIAL/ SUBSCAP AREA TISSUES-> ? SUBSCAP MM INVOLVEMENT. THE Pt HAS HAD 16 PT TREATMENTS AND HAS CURRENTLY REACHED HIS AUTHORIZED END DATE- HE HAS BEEN UNABLE TO RTW THERE IS NO Lt DUTY AVAIL , WE HAVE REVIEWED BASIC BODY MECH TO REDUCE FURTHER CHANCE OF STRAIN TO CERV/ Rt SH COMPLEX AND HE IS REFERRED BACK TO HIS MD FOR FURTHER ASSESSMENT. Electronically signed by: OCTAVIANO CHAVIS,PT Please sign and return to therapist. Thank you for your referral.
== END 2024-12-24 13:53 | disposition home or self-care (01) ==
LOC: HO.PT 08:48
PROVIDERS: PCP Student in an Organized Health Care Education/Training Program; Visit Provider Physician Assistant Medical
DX: M54.2 Cervicalgia (principal)
CPT/HCPCS: 97012; 97110; 97112; 97140; 97162; 97164; 97530

== ENCOUNTER → 2024-09-16 09:33 | Outpatient (BNVA) | payer OTHER, SELFPAY | PROVIDERS: PCP Student in an Organized Health Care Education/Training Program; Visit Provider Physician Assistant Medical | DX: S06.0X0D Concussion without loss of consciousness, subsequent encounter (principal); S43.111D Subluxation of right acromioclavicular joint, subsequent encounter; W22.8XXD Striking against or struck by other objects, subsequent encounter; H93.19 Tinnitus, unspecified ear; M25.511 Pain in right shoulder | CPT/HCPCS: 99213 ==

== ENCOUNTER → 2024-10-11 09:33 | Outpatient (BNVA) | payer OTHER, SELFPAY | PROVIDERS: PCP Student in an Organized Health Care Education/Training Program; Visit Provider Physician Assistant Medical | DX: S43.111D Subluxation of right acromioclavicular joint, subsequent encounter (principal); W22.8XXD Striking against or struck by other objects, subsequent encounter; H93.13 Tinnitus, bilateral; M25.511 Pain in right shoulder | CPT/HCPCS: 99213 ==

== ENCOUNTER 2024-10-18 08:43 | Outpatient (AMB) | payer OTHER, SELFPAY ==
--- NOTE | 2024-10-18 08:44 | MHC.OFFVIS ---
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 Right shoulder pain: The patient reports right shoulder pain following a work-related injury on the of this year, where an 80-pound steel bar struck his shoulder, causing significant blunt trauma to his right shoulder and head. He has completed 20 sessions of physical therapy, which improved his range of motion but did not alleviate the pain. Massage therapy and cervical traction therapy was helpful but with temporary relief. An MRI of the shoulder was normal, and a cortisone injection on 08/18/24 through [facility] provided no relief. The pain is described as constant and localized to posterior right shoulder and under the shoulder blade and periscapular region, with associated neck pain and numbness in the right thumb. Cervical spondylosis: The patient has mild to moderate cervical spondylosis at C5-6 and C6-7, identified during an evaluation following the shoulder injury. He experiences pain radiating from the neck to the shoulder and down the right arm, with associated muscle spasms and stiffness on the right, weakness and numbness in the thumb. Right median and ulnar neuropathy: EMG studies revealed mild to moderate right median neuropathy and mild right ulnar neuropathy across cubital tunnel, with symptoms of numbness and weakness in the right hand and thumb following the injury. Tinnitus: The patient reports tinnitus in both ears, with a high-pitched ringing that began after the shoulder injury. He experiences associated sleep disturbances, for which he has been prescribed Xanax. 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 Hypertension: The patient has a history of hypertension, which is managed with medication. - Onset: Pain began after a work-related injury involving an 80-pound steel bar striking the shoulder. - Quality: Constant pain located under the shoulder blade with aching, dull, cramping, and throbbing sensations. - Radiation: Pain radiates from the shoulder to the neck and down the right arm. - Exacerbating factors: Physical activity worsens the pain. Sleeping on right side, lifting, pulling, movements. - Relieving factors: Physical therapy improved range of motion but not pain relief. - Affect: The pain impacts the patient's sleep and daily activities. - Analgesia: Currently using ibuprofen and Xanax for pain and sleep disturbances. - Adverse Effects: No specific adverse effects from medications reported. - Activities of Daily Living: Pain interferes with work and daily functioning and sleep. - Aberrant Drug Related Behaviors: No aberrant behaviors reported. 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 Reports headaches with neck pain, with photosensitivity. - Cardiovascular: Denies chest pain or palpitations. - Respiratory: Denies dyspnea or cough. - Gastrointestinal: Denies nausea or vomiting. - Psychiatric: Reports sleep disturbances due to tinnitus. All systems reviewed & are unremarkable except as noted in HPI and below Eyes Reports photophobia (with cervicogenic headache) Physical Exam General: Appears afebrile. Alert and oriented. Mood and affect appropriate. Follows and participates in conversation appropriately. Respiratory effort is unlabored. No cough. Able to transition from sit to stand unassisted. Ambulates with bilaterally normal heel strike and toe off. HEENT Head: Yes normal to inspection, Yes No palpable skull fracture present, Yes normocephalic, Yes atraumatic, No occipital foramen tenderness and No scalp tenderness Ears: other (reports intermittent left ear deafness with tinnitus) Eyes General: appearance normal, both eyes and all related structures Direct Ophthalmoscopy: photophobia (with cervicogenic headache) Neck Other: Patient with decreased cervical ROM in all planes/especially with lateral rotations, right>left. Reports increased pain with cervical extension and flexion. Spurling compression test is negative. Elvey's tension test positive on the right, with radiation of pain from neck to wrist. Lhermitte's test was negative. DTR intact, +2 and symmetrical. No clonus. Patient demonstrated 5/5 left and 4/5 right motor strength of bilateral upper extremities. 2 + radial pulses. Significant tightness throughout right upper and lower trapezius, rhomboids, infraspinatus and periscapular as well as TTP throughout bilateral upper trapezius muscles. No paravertebral tenderness over facet joints bilaterally. +Tinels, +Phalen's on the right. Neck: Yes normal visual inspection, Yes full ROM, Yes no lymphadenopathy, Yes supple, No anterior neck swelling, Yes no JVD, No prominent supraclavicular fat pad and No prominent dorsocervical fat pad Back/Spine/Pelvis Cervical Spine: cervical ROM normal, No collar present, No Lhermitte's sign positive, loss of normal cervical lordosis, cervical muscular tenderness, pain with cervical ROM, No Cervical spine scars present, cervical spasm (right) and No Cervical spine tenderness Thoracic/Lumbar Spine: thoracic and lumbar spine normal to inspection, No thoracic spinal tenderness and No lumbar spinal tenderness Extrem General: Yes capillary refill normal, Yes no clubbing, cyanosis or edema and Yes no calf tenderness Right upper extremity: shoulder/upper arm Details: normal to inspection, tenderness Location: of the scapula, axillary nerve sensory function normal and normal ROM; no swelling, no ecchymosis, no crepitus, no deformity and no unusual warmth Results Reviewed Results Reviewed: MR shoulder RT wo con 06/14/24 CLINICAL HISTORY: pain w-movement rt shoulder and numbness MR right shoulder without gadolinium Comparison: 05/25/2024 Findings: No acute fractures. No pathologic bone lesions. No significant degenerative changes. Type II acromion. No joint effusion. The supraspinatus, infraspinatus, subscapularis, and teres minor tendons are intact. The long head of biceps is intact. No tears of the glenoid labrum. IMPRESSION: Unremarkable right shoulder MRI. NE electromyogram (EMG) 08/10/24 Right median and ulnar motor and sensory studies were performed. Right radial and median and lateral antecubital brachial sensory studies were performed, and paraspinal muscles were tested with a needle. IMPRESSION: 1. Orqe-rb-nzkrlgve right median neuropathy across carpal tunnel. 2. Mild right ulnar neuropathy across cubital tunnel. Assessment & Plan Assessment & Plan (1) Right shoulder pain: Code(s): M25.511 - Pain in right shoulder Category: Medical (2) Impingement of right shoulder: Code(s): M25.811 - Other specified joint disorders, right shoulder Category: Medical (3) Pulsatile tinnitus: Code(s): H93.A9 - Pulsatile tinnitus, unspecified ear Category: Medical (4) Cervicogenic headache: Code(s): G44.86 - Cervicogenic headache Category: Medical (5) Cervical radiculopathy: Code(s): M54.12 - Radiculopathy, cervical region Category: Medical (6) Cervicogenic headache: Code(s): G44.86 - Cervicogenic headache Category: Medical (7) Muscle spasms of neck: Code(s): M62.838 - Other muscle spasm Category: Medical (8) Carpal tunnel syndrome, right: Code(s): G56.01 - Carpal tunnel syndrome, right upper limb Category: Medical (9) Ulnar neuropathy of right upper extremity: Code(s): G56.21 - Lesion of ulnar nerve, right upper limb Category: Medical (10) Cervical spondylosis: Code(s): M47.812 - Spondylosis without myelopathy or radiculopathy, cervical region Category: Medical (11) Degenerative disc disease, cervical: Code(s): M50.30 - Other cervical disc degeneration, unspecified cervical region Category: Medical Plan - Plan to perform MRI of the neck to assess for cervical pathology contributing to persistent shoulder pain. - Consider PRP injections, diagnostic cervical medial branch blocks and suprascapular nerve block for shoulder and neck pain for potential RFA and Sprint PNS trials. Information pamphlets were provided to patient. - Recommend consultation with a Hand specialist for carpal tunnel and ulnar neuropathy. - MRI of the brain to evaluate tinnitus and associated symptoms, including left ear deafness since right shoulder injury with blunt trauma to head and shoulder in April 2024. All questions and concerns have been answered and patient agreed with the plan. Follow up for MRI results and sooner as needed. Patient was informed and verbally consented to the use of an ambient scribe for clinic note documentation during this visit. Orders: Orders MR head/brain wo con Today G44.86 - Cervicogenic headache, H91.92 - Unspecified hearing loss, left ear, H93.A9 - Pulsatile tinnitus, unspecified ear MR cervical spine wo con Today G44.86 - Cervicogenic headache, M47.812 - Spondylosis without myelopathy or radiculopathy, cervical region, M50.30 - Other cervical disc degeneration, unspecified cervical region, M54.12 - Radiculopathy, cervical region Referrals Hand Surgery Referral G56.01 - Carpal tunnel syndrome, right upper limb, G56.21 - Lesion of ulnar nerve, right upper limb Patient Instructions: I discussed with the patient the potential causes of his shoulder pain, emphasizing the need for a neck MRI to rule out cervical involvement. We also talked about the possibility of PRP injections for ongoing right shoulder pain resistant to conservative treatments. I recommended a consultation with a Hand specialist for his ulnar and carpal tunnel neuropathy and discussed the option of nerve blocks for diagnostic and potential RFA and Sprint PNS procedures. Additionally, I advised an MRI of the brain to further evaluate his tinnitus and associated symptoms. The patient was informed about the risks and benefits of each procedure, and the importance of follow-up was emphasized. - Schedule MRI of the neck and brain as discussed. - Follow up with a Hand specialist for ulnar and carpal tunnel neuropathy. - Consider PRP injection for persistent right shoulder pain. - Continue gentle stretching exercises, heat/ice therapy, NSAIDs, and muscle relaxant. - Return for follow-up after MRI results are available. Coding Level of Care Code New Pt Level 4 (99177) Diagnoses Right shoulder pain M25.511 Impingement of right shoulder M25.811 Pulsatile tinnitus H93.A9 Cervicogenic headache G44.86 Cervical radiculopathy M54.12 Muscle spasms of neck M62.838 Carpal tunnel syndrome, right G56.01 Ulnar neuropathy of right upper extremity G56.21 Cervical spondylosis M47.812 Degenerative disc disease, cervical M50.30
[2024-10-18 08:46] VITALS: BP 151/96; PULSE 98; RESP 16; O2SAT 99; BMI 24.2
--- OUTSIDE RECORDS SUMMARY | 2024-10-18 09:03 | XMS_ITS | Clinical Summary ---
Author Organization [facility] Address [address] [place] [id number] Phone Care Team Providers Care Supervisor Self Service Store Name Role Phone Kelton Gibbs MD Primary Care Provider + Allergies No known active allergies Medications amLODIPine (NORVASC) 10 MG tablet Take 10 mg by mouth. 12/18/2020 Active fluticasone propionate (FLONASE ALLERGY RELIEF) 50 mcg/actuation nasal spray by Nasal route. 01/19/2021 Active omeprazole (PRILOSEC) 20 MG tablet Take 20 mg by mouth. 06/20/2020 Active Active Problems No known active problems Social History Tobacco Use Types Packs/Day Years Used Date Smoking Tobacco: Every Day Cigarettes Smokeless Tobacco: Never Alcohol Use Standard Drinks/Week Comments Yes 0 (1 standard drink = 0.6 oz pur e alcohol) occ Education Answer Date Recorded Are you interested in more education? Not on ajit e 07/05/2022 Are you concerned about learning? Not on file 07/05/2022 No 07/05/2022 No 07/05/2022 Digital Access Answer Date Recorded No 08/02/2022 No 08/02/2022 Reliable internet access at home? Not on file 08/02/2022 Device with a working camera? Not on file Sex and Gender Information Value Date Recorded Sex Assigned at Not on file Legal Sex Male 9:36 PM EDT Gender Identity Not on file Sexual Orientation Not on file Last Filed Vital Signs Vital Sign Reading Time Taken Comments Blood Pressure 126/82 09/03/2022 2:45 PM EDT Pulse 104 09/03/2022 2:45 PM EDT Temperature - - Respiratory Rate 16 09/03/2022 2:45 PM EDT Oxygen Saturation 98% 09/03/2022 2:45 PM EDT Inhaled Oxygen Concentration - - Weight 79.4 kg (175 lb) 09/03/2022 2:45 PM EDT Height 175.3 cm (5' 9 ) 09/03/2022 2:45 PM EDT Body Mass Index 25.84 09/03/2022 2:45 PM EDT Plan of Treatment Health Maintenance Due Date Last Done Comments LIPID PANEL 1969 DEPRESSION SCREENING 1981 SMOKING Hx and SMOKELESS TOBACCO SCREENING 1982 HEPATITIS C SCREENING 1987 HIV ONE-TIME SCREENING (18-65 YEARS) 1987 PNEUMOCOCCAL VACCINES (50+ years) (1 of 2 - PCV) 01/19/1988 SCREENING FOR DIABETES 01/19/2004 COLOGUARD 2014 COLONOSCOPY 2014 COLORECTAL CANCER SCREENING 2014 FIT TEST 2014 FOBT 2014 SIGMOIDOSCOPY 2014 VIRTUAL COLONOSCOPY 2014 ZOSTER VACCINES (1 of 2) 2019 COVID-19 VACCINE ( season) 2023 Adult Td,Tdap Booster 12/21/2030 12/21/2020 , 12/07/2018, 02/04/2011, Additional history exists HEPATITIS A VACCINES Aged Out No long er eligible based on patient's age to complete this topic HIB VACCINES Aged Out No longer eligi ble based on patient's age to complete this topic MENINGOCOCCAL VACCINES (ACWY) Aged Out No longer eligible based on patient's age to complete this topic MENINGOCOCCAL VACCINES (B) Aged Out N o longer eligible based on patient's age to complete this topic Medical Devices Not on file Insurance HMO HMO HMO HMO O O O [facility] HMO [facility] HMO Care Teams Supervisor Self Service Store Relationship Specialty Start Date End Date Kelton Gibbs MD PCP - General Internal Medicine 04/30/19 Additional Source Comments The information contained in this document represents components of the legal health record. It is not the complete legal health record.[facility]
== END 2024-10-18 09:20 | disposition home or self-care (01) ==
LOC: HO.PMC 08:43
PROVIDERS: PCP Student in an Organized Health Care Education/Training Program; Visit Provider Nurse Practitioner Family
DX: M25.511 Pain in right shoulder (principal); M25.811 Other specified joint disorders, right shoulder; H93.A9 Pulsatile tinnitus, unspecified ear; G44.86 Cervicogenic headache; M54.12 Radiculopathy, cervical region; M62.838 Other muscle spasm; G56.01 Carpal tunnel syndrome, right upper limb; G56.21 Lesion of ulnar nerve, right upper limb; M47.812 Spondylosis without myelopathy or radiculopathy, cervical region; M50.30 Other cervical disc degeneration, unspecified cervical region
CPT/HCPCS: 99204

== ENCOUNTER → 2024-10-18 08:43 | Outpatient (BNVA) | payer OTHER, SELFPAY | PROVIDERS: PCP Student in an Organized Health Care Education/Training Program; Visit Provider Nurse Practitioner Family | DX: M25.511 Pain in right shoulder (principal); I10 Essential (primary) hypertension; M25.811 Other specified joint disorders, right shoulder; H93.A9 Pulsatile tinnitus, unspecified ear; G44.86 Cervicogenic headache; M62.838 Other muscle spasm; G56.01 Carpal tunnel syndrome, right upper limb; G56.21 Lesion of ulnar nerve, right upper limb; M47.812 Spondylosis without myelopathy or radiculopathy, cervical region; M50.30 Other cervical disc degeneration, unspecified cervical region | CPT/HCPCS: 99202 ==

== ENCOUNTER → 2024-11-07 08:34 | Outpatient (BNV) | payer OTHER, SELFPAY | PROVIDERS: Visit Provider Radiology Diagnostic Radiology | DX: M47.22 Other spondylosis with radiculopathy, cervical region (principal); H93.13 Tinnitus, bilateral | CPT/HCPCS: 70551; 72141 ==

== ENCOUNTER 2024-11-07 08:47 | Outpatient (REF) | payer OTHER, SELFPAY ==
--- NOTE | ~2024-11-07 | MR_ITS ---
CLINICAL HISTORY: M54.12 - Radiculopathy, cervical region MR cervical spine without gadolinium Comparison: None provided Findings: Normal vertebral body alignment. C2-C3: No significant annular bulge or focal disc herniation. No neural foraminal narrowing is noted. There is disc desiccation. There is disc desiccation. C4-C5: there is mild disc space narrowing disc desiccation with bilateral neural foraminal narrowing. C5-C6: There is disc desiccation and disc space narrowing associated with a posterior osteophytic ridge disc complex deforming the anterior aspect of the dural sac. There appears to be significant bilateral neural foraminal narrowing at this level. C6-C7: Disc desiccation and disc space narrowing a posterior osteophytic ridge disc complex deforms the dural sac. There is bilateral neural foraminal narrowing at this level. C7-T1: There is no significant annular bulge or focal herniation. There does appear to be significant bilateral neural foraminal narrowing at this level. No acute fractures or pathologic bone lesions. Visualized intracranial contents are unremarkable. Soft tissues of the neck are normal. Cervical cord normal size and signal. Study is significantly limited by motion. C3-4: Small posterior osteophytic ridge and likely uncinate joint arthropathy narrows the bilateral neural foramina. IMPRESSION: 1. Limited examination secondary to motion particularly with regards to the axial images. 2. C3-4: Small posterior osteophytic ridge and likely uncinate joint arthropathy narrows the bilateral neural foramina. 3. C4-C5: there is mild disc space narrowing and disc desiccation with bilateral neural foraminal narrowing. 4. C5-6 and C6-7: There is disc desiccation and disc space narrowing associated with a posterior osteophytic ridge disc complexes deforming the anterior aspect of the dural sac. There appears to be significant bilateral neural foraminal narrowing at these levels. This document has been electronically signed by: Andrew Hernandez MD on 11/07/2024 10:48:01
--- NOTE | ~2024-11-07 | MR_ITS ---
CLINICAL HISTORY: H93.A9 - Pulsatile tinnitus, unspecified ear --- Additional Notes or Special Instructions: Blunt trauma to head and right shoulder 2024 work related injury MR Brain without gadolinium Comparison: None provided Findings: No restricted diffusion. No intra-axial mass or hemorrhage. No midline shift. No hydrocephalus. Vascular flow voids are intact. Orbital contents are unremarkable. The sinuses and mastoid air cells are clear. No focal bone lesion. The middle ear structures are unremarkable. There is no evidence of a paraganglioma or other mass. Seventh and 8th cranial nerves are normal. There is no evidence of a vascular malformation or displacement of the 7th and 8th cranial nerves. There media high-riding bulb on the right. IMPRESSION: Possible high-riding jugular bulb on the right. Evaluation for vascular causes or other bony pathology would be best accomplished with a temporal bone CT. This document has been electronically signed by: Andrew Hernandez MD on 11/07/2024 11:14:09
--- OUTSIDE RECORDS SUMMARY | 2024-11-07 08:51 | XMS_ITS | Clinical Summary ---
Author Organization [facility] Address [address] [place] [phone] Phone Care Team Providers Care Blueprint Reader Name Role Phone Kelton Gibbs MD Primary [...] HMO HMO HMO HMO O O O [facility] HMO [facility] H[facility] Care Teams Blueprint Reader Relationship Specialty Start Date End Date Kelton Gibbs MD PCP - General Internal Medicine 04/30/19 Additional Source Comments The information contained in this document represents components of the legal health record. It is not the complete legal health record.[facility]
== END 2024-11-07 08:48 | disposition home or self-care (01) ==
LOC: HO.MRI 08:47
PROVIDERS: Visit Provider Nurse Practitioner Family
DX: M54.12 Radiculopathy, cervical region (principal); G44.86 Cervicogenic headache; M47.812 Spondylosis without myelopathy or radiculopathy, cervical region; M50.30 Other cervical disc degeneration, unspecified cervical region; H93.A9 Pulsatile tinnitus, unspecified ear; H91.92 Unspecified hearing loss, left ear; M54.16 Radiculopathy, lumbar region
CPT/HCPCS: 70551; 72141

== ENCOUNTER → 2024-11-09 09:17 | Outpatient (BNVA) | payer OTHER, SELFPAY | PROVIDERS: Visit Provider Physician Assistant Medical | DX: S06.2X0D Diffuse traumatic brain injury without loss of consciousness, subsequent encounter (principal); W22.8XXD Striking against or struck by other objects, subsequent encounter; R51.9 Headache, unspecified; H93.13 Tinnitus, bilateral; M25.512 Pain in left shoulder; M25.511 Pain in right shoulder | CPT/HCPCS: 99213 ==

== ENCOUNTER 2024-11-15 11:07 | Outpatient (AMB) | payer OTHER, SELFPAY ==
[2024-11-15 11:18] VITALS: BP 160/105; PULSE 95; RESP 18; O2SAT 96; BMI 24.2
--- NOTE | 2024-11-15 11:18 | A.OFFVIS_ITS ---
Vital Signs 3 11/15/24 11:18 Height 5 ft 9 in Weight 164 lb BMI 24.2 BP 160/105 H Blood Pressure Location Lt brachial Position Sitting Respiration 18 Pulse 95 Pulse Source Pulse Oximeter Pulse Oximetry (%) 96 Oxygen Delivery Method Room Air Intake Visit Reasons: MRI FOLLOW UP Allergies bee pollen (bee stings) Allergy (Verified 11/15/24 11:17) Anaphylaxis walnut Allergy (Verified 11/15/24 11:17) Anaphylaxis HPI Comments Details: The patient is a 54-year-old male presenting with neck pain and associated right shoulder pain. The neck pain has been persistent and is associated with numbness and tingling in the right hand, specifically affecting the thumb and first two fingers. The pain is exacerbated by certain positions and activities, such as sleeping on the right side, range of motion, movement, using and lifting right arm. The patient reports a history of a work-related injury, which included a bar hitting his head. Due to noise in his right ear, brain MRI was completed, which revealed a high riding jugular bulb on the right side, which may be contributing to the tinnitus experienced by the patient. Per MRI recommendation, a follow up with temporal bone CT has been ordered. The patient has undergone imaging studies, including an MRI of the neck, which showed disc herniation at C5-C6 and C6-C7 levels, with stenosis and nerve root compression as noted below. He underwent right shoulder cortisone injection in August with minimal relief. The patient has been advised to follow up with a Neurosurgeon for further evaluation and management options as he declined interventional treatments to address his cervical radiculopathy symptoms. PRIOR: The patient is a 54-year-old male presenting with right shoulder pain related to a work injury. Right shoulder pain: The patient reports right shoulder pain following a work-related injury on the of this year, where an 80-pound steel bar struck his shoulder, causing significant blunt trauma to his right shoulder and head. He has completed 20 sessions of physical therapy, which improved his range of motion but did not alleviate the pain. Massage therapy and cervical traction therapy was helpful but with temporary relief. An MRI of the shoulder was normal, and a cortisone injection on 08/18/24 through [facility] provided no relief. The pain is described as constant and localized to posterior right shoulder and under the shoulder blade and periscapular region, with associated neck pain and numbness in the right thumb. Cervical spondylosis: The patient has mild to moderate cervical spondylosis at C5-6 and C6-7, identified during an evaluation following the shoulder injury. He experiences pain radiating from the neck to the shoulder and down the right arm, with associated muscle spasms and stiffness on the right, weakness and numbness in the thumb. Right median and ulnar neuropathy: EMG studies revealed mild to moderate right median neuropathy and mild right ulnar neuropathy across cubital tunnel, with symptoms of numbness and weakness in the right hand and thumb following the injury. Tinnitus: The patient reports tinnitus in both ears, with a high-pitched ringing that began after the shoulder injury. He experiences associated sleep disturbances, for which he has been prescribed Xanax. 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 Hypertension: The patient has a history of hypertension, which is managed with medication. - Onset: Pain began after a work-related injury involving an 80-pound steel bar striking the shoulder. - Quality: Constant pain located under the shoulder blade with aching, dull, cramping, and throbbing sensations. - Radiation: Pain radiates from the shoulder to the neck and down the right arm. - Exacerbating factors: Physical activity worsens the pain. Sleeping on right side, lifting, pulling, movements. - Relieving factors: Physical therapy improved range of motion but not pain relief. - Affect: The pain impacts the patient's sleep and daily activities. - Analgesia: Currently using ibuprofen and Xanax for pain and sleep disturbances. - Adverse Effects: No specific adverse effects from medications reported. - Activities of Daily Living: Pain interferes with work and daily functioning and sleep. - Aberrant Drug Related Behaviors: No aberrant behaviors reported. 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 - Neurological: Reports tinnitus and numbness in the thumb and first two fingers of the right hand. All systems reviewed & are unremarkable except as noted in HPI and below Eyes Reports photophobia (with cervicogenic headache) Physical Exam Vital Signs: Last Vital Signs Pulse 95 11/15/24 11:18 Resp 18 11/15/24 11:18 BP 160/105 H 11/15/24 11:18 Pulse Ox 96 11/15/24 11:18 Oxygen Delivery Method Room Air 11/15/24 11:18 BMI result Body Mass Index 24.2 General: Appears afebrile. Alert and oriented. Mood and affect appropriate. Follows and participates in conversation appropriately. Respiratory effort is unlabored. No cough. Able to transition from sit to stand unassisted. Ambulates with bilaterally normal heel strike and toe off. HEENT Head: Yes normal to inspection, Yes No palpable skull fracture present, Yes normocephalic, Yes atraumatic, No occipital foramen tenderness and No scalp tenderness Ears: other (reports intermittent left ear deafness with tinnitus) Eyes General: appearance normal, both eyes and all related structures Direct Ophthalmoscopy: photophobia (with cervicogenic headache) Neck Other: Patient with decreased cervical ROM in all planes/especially with lateral rotations, right>left. Reports increased pain with cervical extension and flexion. Spurling compression test is negative. Elvey's tension test positive on the right, with radiation of pain from neck to wrist. Lhermitte's test was negative. DTR intact, +2 and symmetrical. No clonus. Patient demonstrated 5/5 left and 4/5 right motor strength of bilateral upper extremities. 2 + radial pulses. Significant tightness throughout right upper and lower trapezius, rhomboids, infraspinatus and periscapular as well as TTP throughout bilateral upper trapezius muscles. No paravertebral tenderness over facet joints bilaterally. +Tinels, +Phalen's on the right. Neck: Yes normal visual inspection, Yes full ROM, Yes no lymphadenopathy, Yes supple, No anterior neck swelling, Yes no JVD, No prominent supraclavicular fat pad and No prominent dorsocervical fat pad Back/Spine/Pelvis Cervical Spine: cervical ROM normal, No collar present, No Lhermitte's sign positive, loss of normal cervical lordosis, cervical muscular tenderness, pain with cervical ROM, No Cervical spine scars present, cervical spasm (right) and No Cervical spine tenderness Thoracic/Lumbar Spine: thoracic and lumbar spine normal to inspection, thoraco- lumbar ROM limited, No thoracic spinal tenderness and No lumbar spinal tenderness Extrem General: Yes capillary refill normal, Yes no clubbing, cyanosis or edema and Yes no calf tenderness Right upper extremity: shoulder/upper arm Details: normal to inspection, tenderness Location: of the scapula, axillary nerve sensory function normal and normal ROM; no swelling, no ecchymosis, no crepitus, no deformity and no unusual warmth Results Reviewed Results Reviewed: MR shoulder RT wo con 06/14/24 CLINICAL HISTORY: pain w-movement rt shoulder and numbness MR right shoulder without gadolinium Comparison: 05/25/2024 Findings: No acute fractures. No pathologic bone lesions. No significant degenerative changes. Type II acromion. No joint effusion. The supraspinatus, infraspinatus, subscapularis, and teres minor tendons are intact. The long head of biceps is intact. No tears of the glenoid labrum. IMPRESSION: Unremarkable right shoulder MRI. NE electromyogram (EMG) 08/10/24 Right median and ulnar motor and sensory studies were performed. Right radial and median and lateral antecubital brachial sensory studies were performed, and paraspinal muscles were tested with a needle. IMPRESSION: 1. Qmjh-ij-mfdtzwrh right median neuropathy across carpal tunnel. 2. Mild right ulnar neuropathy across cubital tunnel. MR head/brain wo con 11/07/24 CLINICAL HISTORY: H93.A9 - Pulsatile tinnitus, unspecified ear --- Additional Notes or Special Instructions: Blunt trauma to head and right shoulder 2024 work related injury MR Brain without gadolinium Comparison: None provided Findings: No restricted diffusion. No intra-axial mass or hemorrhage. No midline shift. No hydrocephalus. Vascular flow voids are intact. Orbital contents are unremarkable. The sinuses and mastoid air cells are clear. No focal bone lesion. The middle ear structures are unremarkable. There is no evidence of a paraganglioma or other mass. Seventh and 8th cranial nerves are normal. There is no evidence of a vascular malformation or displacement of the 7th and 8th cranial nerves. There media high-riding bulb on the right. IMPRESSION: Possible high-riding jugular bulb on the right. Evaluation for vascular causes or other bony pathology would be best accomplished with a temporal bone CT. MR cervical spine without gadolinium 11/07/24 Comparison: None provided Findings: Normal vertebral body alignment. C2-C3: No significant annular bulge or focal disc herniation. No neural foraminal narrowing is noted. There is disc desiccation. There is disc desiccation. C4-C5: there is mild disc space narrowing disc desiccation with bilateral neural foraminal narrowing. C5-C6: There is disc desiccation and disc space narrowing associated with a posterior osteophytic ridge disc complex deforming the anterior aspect of the dural sac. There appears to be significant bilateral neural foraminal narrowing at this level. C6-C7: Disc desiccation and disc space narrowing a posterior osteophytic ridge disc complex deforms the dural sac. There is bilateral neural foraminal narrowing at this level. C7-T1: There is no significant annular bulge or focal herniation. There does appear to be significant bilateral neural foraminal narrowing at this level. No acute fractures or pathologic bone lesions. Visualized intracranial contents are unremarkable. Soft tissues of the neck are normal. Cervical cord normal size and signal. Study is significantly limited by motion. C3-4: Small posterior osteophytic ridge and likely uncinate joint arthropathy narrows the bilateral neural foramina. IMPRESSION: 1. Limited examination secondary to motion particularly with regards to the axial images. 2. C3-4: Small posterior osteophytic ridge and likely uncinate joint arthropathy narrows the bilateral neural foramina. 3. C4-C5: there is mild disc space narrowing and disc desiccation with bilateral neural foraminal narrowing. 4. C5-6 and C6-7: There is disc desiccation and disc space narrowing associated with a posterior osteophytic ridge disc complexes deforming the anterior aspect of the dural sac. There appears to be significant bilateral neural foraminal narrowing at these levels. Assessment & Plan Assessment & Plan (1) Cervical radiculopathy: Code(s): M54.12 - Radiculopathy, cervical region Category: Medical (2) Degenerative disc disease, cervical: Code(s): M50.30 - Other cervical disc degeneration, unspecified cervical region Category: Medical (3) Neuroforaminal stenosis of cervical spine: Code(s): M48.02 - Spinal stenosis, cervical region Category: Medical (4) Right shoulder pain: Code(s): M25.511 - Pain in right shoulder Category: Medical (5) Cervicogenic headache: Code(s): G44.86 - Cervicogenic headache Category: Medical (6) Cervical spondylosis: Code(s): M47.812 - Spondylosis without myelopathy or radiculopathy, cervical region Category: Medical (7) Pulsatile tinnitus: Code(s): H93.A9 - Pulsatile tinnitus, unspecified ear Category: Medical Plan The patient will be referred to a Neurosurgeon for further evaluation of the cervical disc herniation and associated neck and right right arm symptoms. Patient is advised to obtain all imaging studies on a disc to bring to the Neurosurgeon for comprehensive evaluation. A temporal bone CT is pending to further investigate the high riding jugular bulb and its contribution to the patient's tinnitus. All questions and concerns have been answered and patient agreed with the treatment plan. Follow up for CT scan results and sooner as needed. Patient was informed and verbally consented to the use of an ambient scribe for clinic note documentation during this visit. Orders: Referrals 2 Neurosurgery Referral M48.02 - Spinal stenosis, cervical region, M50.30 - Other cervical disc degeneration, unspecified cervical region, M54.12 - Radiculopathy, cervical region Coding Level of Care Code Est Pt Level 4 (43564) Complex EM visit Add On G2211 Diagnoses Cervical radiculopathy M54.12 Degenerative disc disease, cervical M50.30 Neuroforaminal stenosis of cervical spine M48.02 Right shoulder pain M25.511 Cervicogenic headache G44.86 Cervical spondylosis M47.812 Pulsatile tinnitus H93.A9
--- OUTSIDE RECORDS SUMMARY | 2024-11-15 13:36 | XMS_ITS | Clinical Summary ---
Author Organization [facility] Address [address] [place] [id number] Phone Care Team Providers Care Prop Making Supervisor Name Role Phone Kelton Gibbs MD Primary [...] 2014 ZOSTER VACCINES (1 of 2) 2019 INFLUENZA VACCINE (#1) 2024 COVID-19 VACCINE ( season) 2024 Adult Td,Tdap Booster 12/21/2030 12/21/2020 , 12/07/2018, [...] Medical Devices Not on file Insurance HMO O O O [place] [address] [address] [address] HMO O [facility] HMO Care Teams Prop Making Supervisor Relationship Specialty Start Date End Date Kelton Gibbs MD PCP - General Internal Medicine 04/30/19 Additional Source Comments The information contained in this document represents components of the legal health record. It is not the complete legal health record.[facility]
== END 2024-11-15 11:34 | disposition home or self-care (01) ==
PROVIDERS: Visit Provider Nurse Practitioner Family
DX: M54.12 Radiculopathy, cervical region (principal); M50.30 Other cervical disc degeneration, unspecified cervical region; M48.02 Spinal stenosis, cervical region; M25.511 Pain in right shoulder; G44.86 Cervicogenic headache; M47.812 Spondylosis without myelopathy or radiculopathy, cervical region; H93.A9 Pulsatile tinnitus, unspecified ear
CPT/HCPCS: 99214; G2211

== ENCOUNTER → 2024-11-15 11:07 | Outpatient (BNVA) | payer OTHER, SELFPAY | PROVIDERS: Visit Provider Nurse Practitioner Family | DX: Z71.2 Person consulting for explanation of examination or test findings (principal); M54.12 Radiculopathy, cervical region; M50.30 Other cervical disc degeneration, unspecified cervical region; M48.02 Spinal stenosis, cervical region; M25.511 Pain in right shoulder; G44.86 Cervicogenic headache; M47.812 Spondylosis without myelopathy or radiculopathy, cervical region; H93.A9 Pulsatile tinnitus, unspecified ear | CPT/HCPCS: 99212 ==

== ENCOUNTER 2024-11-18 08:17 | Outpatient (AMB) | payer OTHER, SELFPAY ==
--- NOTE | 2024-11-18 08:25 | MHC.OFFVIS ---
Vital Signs 11/18/24 08:30 Height 5 ft 9 in Weight 165 lb BMI 24.4 Handedness Right Intake Visit Reasons: inj-RT shoulder inj-last 08/18/24, Neck pain Intake Note: Cecilio is a 54 year old man who presents today for a follow up of his right shoulder status post right shoulder cortisone injection administered on 08/18/24. The patient states that he got no relief from the shoulder injection. He states that he is most bothered by his neck pain which radiates into his shoulder blades. He did recently have an MRI of his cervical spine which showed evidence of neural foraminal narrowing. Allergies bee pollen (bee stings) Allergy (Verified 11/18/24 08:30) Anaphylaxis walnut Allergy (Verified 11/18/24 08:30) Anaphylaxis Medication List - Last Reconciled 11/18/24 by Cedrick Traore MD alprazolam 0.25 mg PO BEDTIME PRN amlodipine-valsartan 10-160 mg 1 tab PO DAILY fluoxetine (Prozac) 10 mg PO DAILY ibuprofen 600 mg PO Q8H PRN magnesium oxide 500 mg PO .QHS trazodone 50 mg PO BEDTIME PFSH Medical History Insomnia Impingement of right shoulder Laceration of left middle finger HTN (hypertension) Surgical History (Updated 10/18/24 @ 09:11 by RODO Sequeira) Hx of tonsillectomy Social History Alcohol intake: current Patient Tobacco Use Status: Current everyday Tobacco user 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 Cannon presents with neck pain which radiates into his shoulder blades most likely due to the neural foraminal narrowing seen on his recent cervical spine MRI. The patient did not get any relief from the shoulder cortisone injection. Thus, I do not feel that his symptoms are coming from shoulder pathology. The patient's right shoulder MRI shows only mild degenerative changes, no evidence of labral or rotator cuff tearing. The patient can continue activities as tolerated from my standpoint. He may need to see a neurosurgeon for further evaluation of his cervical spine pathology. The patient will continue with his shoulder range motion exercises to prevent stiffness. Feel free to call me at any time should questions regarding his orthopedic management arise. I spent 22 minutes in reviewing the patient's records and imaging studies, seeing the patient and documenting in the medical record. Coding Level of Care Code Est Pt Level 3 (93110) Complex EM visit Add On G2211 Diagnoses Neuroforaminal stenosis of cervical spine M48.02
[2024-11-18 08:30] VITALS: BMI 24.4
--- OUTSIDE RECORDS SUMMARY | 2024-11-18 09:12 | XMS_ITS | Clinical Summary ---
Author Organization [facility] Address [address] [place] [id number] Phone Care Team Providers Care Desulfurizer Machine Name Role Phone Kelton Gibbs MD Primary [...] Insurance HMO [place] [address] [place] [address] HMO O [facility] HMO Care Teams Desulfurizer Machine Relationship Specialty Start Date End Date Kelton Gibbs MD PCP - General Internal Medicine 04/30/19 Additional Source Comments The information contained in this document represents components of the legal health record. It is not the complete legal health record.[facility]
== END 2024-11-18 08:40 | disposition home or self-care (01) ==
PROVIDERS: PCP Student in an Organized Health Care Education/Training Program; Visit Provider Orthopaedic Surgery
DX: M48.02 Spinal stenosis, cervical region (principal)
CPT/HCPCS: 99213; G2211

== ENCOUNTER → 2024-11-18 08:17 | Outpatient (BNVA) | payer OTHER, SELFPAY | PROVIDERS: PCP Student in an Organized Health Care Education/Training Program; Visit Provider Orthopaedic Surgery | DX: M48.02 Spinal stenosis, cervical region (principal) | CPT/HCPCS: 99212 ==

== ENCOUNTER 2024-12-07 08:34 | Outpatient (AMB) | payer OTHER, SELFPAY ==
--- NOTE | 2024-12-07 08:47 | A.OFFVIS_ITS ---
Vital Signs 12/07/24 08:57 Height 5 ft 9 in Weight 165 lb BMI 24.4 Intake Visit Reasons: New prob-RT CTS evaluation, EMG done Intake Note: Cecilio is a 54 year old right hand dominant male who presents today for a New Problem visit with complains of Right Hand Numbness and Tingling. Patient complains of 1st, 2nd, and 3rd finger numbness and tingling without sleep distu rbance. Patient reports symptoms are daily and intermittent making it difficult to circus hand, squeeze, and open and close lids. Denies finger locking. He has not received any type of treatment for this. Denies any prior injuries or surgeries to the right hand. IMPRESSION 08/10/24: 1. Wqjc-co-lvkyeuuo right median neuropathy across carpal tunnel. 2. Mild right ulnar neuropathy across cubital tunnel. Allergies bee pollen (bee stings) Allergy (Verified 12/07/24 08:48) Anaphylaxis walnut Allergy (Verified 12/07/24 08:48) Anaphylaxis HPI HPI New prob-RT CTS evaluation, EMG done: Details: Cecilio is a 54 year old right hand dominant male who presents today for a New Problem visit with complains of Right Hand Numbness and Tingling. Patient complains of 1st, 2nd, and 3rd finger numbness and tingling without sleep disturbance. Patient reports symptoms are daily and intermittent making it difficult to circus hand, squeeze, and open and close lids. Denies finger locking. He has not received any type of treatment for this. Denies any prior injuries or s urgeries to the right hand. IMPRESSION 08/10/24: 1. Ymio-ir-jxsjujvu right median neuropathy across carpal tunnel. 2. Mild right ulnar neuropathy across cubital tunnel. 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 Good APB muscle firing and good finger cross. Vascular: Capillary refill brisk. ROM: Patient can make a fist and extend all their digits. Skin: No lacerations or abrasions noted. General: No ecchymosis. No erythema or evidence of infection. Results Reviewed Results Reviewed: IMPRESSION: 1. Rznw-cj-gqffhrpy right median neuropathy across carpal tunnel. 2. Mild right ulnar neuropathy across cubital tunnel. Maritza Melvin MD MZK/MODL Assessment & Plan Assessment & Plan (1) Cubital tunnel syndrome on right: Code(s): G56.21 - Lesion of ulnar nerve, right upper limb Category: Medical (2) Carpal tunnel syndrome, right: Code(s): G56.01 - Carpal tunnel syndrome, right upper limb Category: Medical Plan 1. Right carpal tunnel syndrome 2. Right cubital tunnel syndrome Symptoms intermittent, daily, worse at night I educated the patient about the condition. I discussed both operative and nonoperative treatment options. The patient would like to proceed with surgery. The risks and benefits of operative treatment were discussed with the patient and the patient wishes to proceed with surgery. These risks include, but are not limited to, risk of damage to blood vessels, nerves, tendons, infection, recurrence, incomplete relief of preoperative symptoms, persistent pain, possible need for further surgery, and the risks associated with regional blocks and/or anesthesia. Plan is to take the patient to the operating room at some point in the next few weeks for the following procedures: 1. Right cubital tunnel release under general 2. Right carpal tunnel release under general All of the preoperative paperwork including the consent was discussed today. All of the patient's questions were answered in the clinic today. The patient understands that they will be in contact with our neurosurgical physician assistant to discuss scheduling their procedure. Patient denies diabetes, blood thinners, asthma, heart issues, lung issues, kidney issues, or current smoking. Coding Level of Care Code Est Pt Level 4 (22209) Diagnoses Cubital tunnel syndrome on right G56.21 Carpal tunnel syndrome, right G56.01
--- OUTSIDE RECORDS SUMMARY | 2024-12-07 08:56 | XMS_ITS | Clinical Summary ---
Author Organization [facility] Address [address] [facility] [address] [place] [phone] Phone Care Team Providers Care Reservoir Engineer Name Role Phone Kelton Gibbs MD Primary [...] Insurance HMO [place] [address] [address] HMO O [facility] HMO Care Teams Reservoir Engineer Relationship Specialty Start Date End Date Kelton Gibbs MD PCP - General Internal Medicine 04/30/19 Additional Source Comments The information contained in this document represents components of the legal health record. It is not the complete legal health record.[facility]
[2024-12-07 08:57] VITALS: BMI 24.4
== END 2024-12-07 09:32 | disposition home or self-care (01) ==
LOC: HO.HOS 08:34
PROVIDERS: PCP Student in an Organized Health Care Education/Training Program
DX: G56.21 Lesion of ulnar nerve, right upper limb (principal); G56.01 Carpal tunnel syndrome, right upper limb
CPT/HCPCS: 99214

== ENCOUNTER → 2024-12-07 08:34 | Outpatient (BNVA) | payer OTHER, SELFPAY | PROVIDERS: PCP Student in an Organized Health Care Education/Training Program | DX: Z01.818 Encounter for other preprocedural examination (principal); G56.21 Lesion of ulnar nerve, right upper limb; G56.01 Carpal tunnel syndrome, right upper limb | CPT/HCPCS: 99212 ==

== ENCOUNTER → 2024-12-09 09:18 | Outpatient (BNVA) | payer OTHER, SELFPAY | PROVIDERS: PCP Student in an Organized Health Care Education/Training Program; Visit Provider Emergency Medicine | DX: S43.111D Subluxation of right acromioclavicular joint, subsequent encounter (principal); W22.8XXD Striking against or struck by other objects, subsequent encounter; M54.2 Cervicalgia; H93.13 Tinnitus, bilateral; G56.00 Carpal tunnel syndrome, unspecified upper limb | CPT/HCPCS: 99215 ==

== ENCOUNTER 2024-12-22 07:36 | Outpatient (REF) | payer OTHER, SELFPAY ==
--- NOTE | ~2024-12-22 | CT_ITS ---
EXAMINATION: CT ORBIT WITH CONTRAST CLINICAL INFORMATION: H93.A9. Pulsatile tinnitus, unspecified. Possible high riding jugular bulb on the right side. COMPARISON: Correlated to noncontrast MRI brain dated November 07, 2024. TECHNIQUE: Contiguous axial images through the orbits following the IV contrast administration 85 cc Omnipaque 350 strength without reported immediate complications. Sagittal and coronal reformatted images acquired. Soft tissue and bone algorithm obtained. Total DLP: [address] examination was performed using dose optimization techniques as appropriate, variously including the following: *Automated exposure control *Adjustment of mA and/or kV according to patient size (this includes techniques or standardized protocols for targeted exams where dose is matched to indication/reason for exam; i.e. extremities or head) *Use of iterative reconstruction technique FINDINGS: No enhancing mass or peripheral enhancing fluid collection in the intraconal or extraconal compartments of the orbits. The extraocular muscles are intact with normal enhancement pattern. The eyes are intact without enhancing lesion. The intraconal and intracanalicular segments of the optic nerves demonstrated no enhancing lesion or volume loss. The lacrimal glands are normal. The ophthalmic artery is patent. Ophthalmic vein is not enlarged. There is an incomplete fusion of the ethmoid artery notch.. Mucosal thickening without air-fluid levels in the paranasal sinuses. Pneumatized right pterygoid recess of the sphenoid sinus. Batool bullosa left middle turbinate. Dextroconvex nasal septum deviation. There is a dominant right internal jugular bulb and right internal vein with normal anatomic position. The tympanic cavities and mastoid air cells are well aerated with the decreased pneumatization of the right mastoid. The ossicles are intact with normal alignment, bilaterally. The fallopian canal is intact without enlargement, bilaterally. The inner ear structures are symmetric without soft tissue masses or bony erosions. The internal auditory canals are symmetrical without gross enhancing lesion. Calcified plaques in the V4 segment left vertebral artery. The [place] of [place] is incomplete with hypoplastic left posterior communicating artery. CT/CT orbit BI w IV con IMPRESSION: Normal CT orbits. No high riding right internal jugular bulb. Electronically signed by: Lionel Lemus MD 12/22/2024 09:02 AM EDT
--- OUTSIDE RECORDS SUMMARY | 2024-12-22 07:39 | XMS_ITS | Clinical Summary ---
Author Organization [facility] Address [address] [facility] [address] [place] [address] Phone Care Team Providers Care Program Strategist Name Role Phone Kelton Gibbs MD Primary [...] INFLUENZA VACCINE (#1) 2024 COVID-19 VACCINE ( - 2024- season) 2024 Adult Td,Tdap Booster 12/21/2030 12/21/2020 , 12/07/2018, 02/04/2011, Additional history exists RSV VACCINE (1 - 1-dose 75+ series) 01/19/2044 HEPATITIS A VACCINES Aged Out No long [...] topic Medical Devices Not on file Insurance [facility] [place] [place] [id number] [address] [place], [place] [address] O [place] [place] [address] HMO Member Subscriber Plan / Payer ( fective 2018-Present) Name:Cecilio Cannon Relation to Subscriber:Self Name:FlakokelseyCecilio emery Payer ID:Not on file Type:O Address: [place] [phone] Care Teams Program Strategist Relationship Specialty Start Date End Date Kelton Gibbs MD PCP - General Internal Medicine 04/30/19 Additional Source Comments The information contained in this document represents components of the legal health record. It is not the complete legal health record.[facility]
[2024-12-22] MEDS: iohexoL 350 MG/ML 100 ML INFUS..BTL IV (08:37)
[2024-12-22 15:37] LABS: Creatinine POC 0.8 mg/dL (0.5-1.4); GFR POC 60
== END 2024-12-22 07:37 | disposition home or self-care (01) ==
LOC: HO.CT 07:36
PROVIDERS: PCP Student in an Organized Health Care Education/Training Program; Visit Provider Nurse Practitioner Family
DX: H93.A9 Pulsatile tinnitus, unspecified ear (principal)
CPT/HCPCS: 70481; 82565; Q9967

== ENCOUNTER → 2024-12-22 07:37 | Outpatient (BNV) | payer OTHER, SELFPAY | PROVIDERS: PCP Student in an Organized Health Care Education/Training Program; Visit Provider Radiology Diagnostic Radiology | DX: J32.9 Chronic sinusitis, unspecified (principal) | CPT/HCPCS: 70481 ==

== ENCOUNTER → 2024-12-22 08:29 | Outpatient (BNVA) | payer OTHER, SELFPAY | PROVIDERS: PCP Student in an Organized Health Care Education/Training Program; Visit Provider Emergency Medicine | DX: S06.2X0D Diffuse traumatic brain injury without loss of consciousness, subsequent encounter (principal); X58.XXXD Exposure to other specified factors, subsequent encounter; M48.02 Spinal stenosis, cervical region | CPT/HCPCS: 99213 ==

== ENCOUNTER 2024-12-30 10:32 | Outpatient (AMB) | payer OTHER, SELFPAY ==
--- NOTE | 2024-12-30 10:33 | MHC.OFFVIS ---
Vital Signs 12/30/24 10:36 Height 5 ft 9 in Weight 161 lb 4 oz BMI 23.8 BP 169/95 H Blood Pressure Location Lt brachial Position Sitting Pulse 78 Pulse Source Pulse Oximeter Pulse Oximetry (%) 98 Oxygen Delivery Method Room Air Intake Visit Reasons: CT FOLLOW UP Intake Note: Pain today 07/17 Process Operator Required: No Accompanied by: Self / Same As Patient Allergies bee pollen (bee stings) Allergy (Verified 12/30/24 10:37) Anaphylaxis walnut Allergy (Verified 12/30/24 10:37) Anaphylaxis HPI Comments Details: The patient is a 54-year-old male presenting with neck pain and associated right sided radicular symptoms. The neck pain has been attributed to cervical spinal stenosis with significant bilateral neuroforaminal narrowing at the C5-C6 and C6-C7 levels per most recent MRI. The patient initially believed the symptoms were related to the shoulder, but imaging studies and recent Orthopedic re-evaluation indicated the neck as the source of the symptoms. The patient reports tingling in the right forearm, thumb, and fourth and fifth fingers, which worsens with neck movement. Physical therapy, including traction, provided temporary relief, but symptoms returned after cessation of therapy in September. The patient also has a history of carpal tunnel and cubital tunnel syndrome, which is believed to be related to nerve compression and associated with his right upper extremity symptoms. He is scheduled for right carpal and cubital tunnel release on 01/06/25. Patient is hesitant towards therapeutic cervical MAYURI injection and prefers to undergo Neurosurgery evaluation for persicant neck pain. PRIOR: The patient is a 54-year-old male presenting with neck pain and associated right shoulder pain. The neck pain has been persistent and is associated with numbness and tingling in the right hand, specifically affecting the thumb and first two fingers. The pain is exacerbated by certain positions and activities, such as sleeping on the right side, range of motion, movement, using and lifting right arm. The patient reports a history of a work-related injury, which included a bar hitting his head. Due to noise in his right ear, brain MRI was completed, which revealed a high riding jugular bulb on the right side, which may be contributing to the tinnitus experienced by the patient. Per MRI recommendation, a follow up with temporal bone CT has been ordered. The patient has undergone imaging studies, including an MRI of the neck, which showed disc herniation at C5-C6 and C6-C7 levels, with stenosis and nerve root compression as noted below. He underwent right shoulder cortisone injection in August with minimal relief. The patient has been advised to follow up with a Neurosurgeon for further evaluation and management options as he declined interventional treatments to address his cervical radiculopathy symptoms. PRIOR: The patient is a 54-year-old male presenting with right shoulder pain related to a work injury. Right shoulder pain: The patient reports right shoulder pain following a work-related injury on the of this year, where an 80-pound steel bar struck his shoulder, causing significant blunt trauma to his right shoulder and head. He has completed 20 sessions of physical therapy, which improved his range of motion but did not alleviate the pain. Massage therapy and cervical traction therapy was helpful but with temporary relief. An MRI of the shoulder was normal, and a cortisone injection on 08/18/24 through [facility] provided no relief. The pain is described as constant and localized to posterior right shoulder and under the shoulder blade and periscapular region, with associated neck pain and numbness in the right thumb. Cervical spondylosis: The patient has mild to moderate cervical spondylosis at C5-6 and C6-7, identified during an evaluation following the shoulder injury. He experiences pain radiating from the neck to the shoulder and down the right arm, with associated muscle spasms and stiffness on the right, weakness and numbness in the thumb. Right median and ulnar neuropathy: EMG studies revealed mild to moderate right median neuropathy and mild right ulnar neuropathy across cubital tunnel, with symptoms of numbness and weakness in the right hand and thumb following the injury. Tinnitus: The patient reports tinnitus in both ears, with a high-pitched ringing that began after the shoulder injury. He experiences associated sleep disturbances, for which he has been prescribed Xanax. 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 Hypertension: The patient has a history of hypertension, which is managed with medication. - Onset: Pain began after a work-related injury involving an 80-pound steel bar striking the shoulder. - Quality: Constant pain located under the shoulder blade with aching, dull, cramping, and throbbing sensations. - Radiation: Pain radiates from the shoulder to the neck and down the right arm. - Exacerbating factors: Physical activity worsens the pain. Sleeping on right side, lifting, pulling, movements. - Relieving factors: Physical therapy improved range of motion but not pain relief. - Affect: The pain impacts the patient's sleep and daily activities. - Analgesia: Currently using ibuprofen and Xanax for pain and sleep disturbances. - Adverse Effects: No specific adverse effects from medications reported. - Activities of Daily Living: Pain interferes with work and daily functioning and sleep. - Aberrant Drug Related Behaviors: No aberrant behaviors reported. 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 Denies symptoms on the left side. - Musculoskeletal: Reports neck pain and associated symptoms. Denies shoulder as the source of pain. All systems reviewed & are unremarkable except as noted in HPI and below Physical Exam General: Appears afebrile. Alert and oriented. Mood and affect appropriate. Follows and participates in conversation appropriately. Respiratory effort is unlabored. No cough. Able to transition from sit to stand unassisted. Ambulates with bilaterally normal heel strike and toe off. Neck Other: Patient with decreased cervical ROM in all planes/especially with lateral rotation on the right. Reports increased pain with cervical extension and flexion. Spurling compression test is equivocal. Elvey's tension test positive on the right, with radiation of pain from neck to wrist. Lhermitte's test was negative. DTR intact, +2 and symmetrical. No clonus. Patient demonstrated 5/5 left and 4/5 right motor strength of bilateral upper extremities. 2 + radial pulses. Significant tightness throughout right upper and lower trapezius, rhomboids, infraspinatus and periscapular as well as TTP throughout bilateral upper trapezius muscles. No paravertebral tenderness over facet joints bilaterally. +Tinels, +Phalen's on the right. Neck: Yes normal visual inspection, Yes full ROM, Yes no lymphadenopathy, Yes supple, No anterior neck swelling, Yes no JVD, No prominent supraclavicular fat pad and No prominent dorsocervical fat pad Back/Spine/Pelvis Cervical Spine: cervical ROM normal, No collar present, No Lhermitte's sign positive, loss of normal cervical lordosis, cervical muscular tenderness, pain with cervical ROM, No Cervical spine scars present, cervical spasm (right) and No Cervical spine tenderness Thoracic/Lumbar Spine: thoracic and lumbar spine normal to inspection, thoraco-lumbar ROM limited, No thoracic spinal tenderness and No lumbar spinal tenderness Extrem General: Yes capillary refill normal, Yes no clubbing, cyanosis or edema and Yes no calf tenderness Results Reviewed Results Reviewed: MR shoulder RT wo con 06/14/24 CLINICAL HISTORY: pain w-movement rt shoulder and numbness MR right shoulder without gadolinium Comparison: 05/25/2024 Findings: No acute fractures. No pathologic bone lesions. No significant degenerative changes. Type II acromion. No joint effusion. The supraspinatus, infraspinatus, subscapularis, and teres minor tendons are intact. The long head of biceps is intact. No tears of the glenoid labrum. IMPRESSION: Unremarkable right shoulder MRI. NE electromyogram (EMG) 08/10/24 Right median and ulnar motor and sensory studies were performed. Right radial and median and lateral antecubital brachial sensory studies were performed, and paraspinal muscles were tested with a needle. IMPRESSION: 1. Rzdn-yn-myzawfnb right median neuropathy across carpal tunnel. 2. Mild right ulnar neuropathy across cubital tunnel. MR head/brain wo con 11/07/24 CLINICAL HISTORY: H93.A9 - Pulsatile tinnitus, unspecified ear --- Additional Notes or Special Instructions: Blunt trauma to head and right shoulder 2024 work related injury MR Brain without gadolinium Comparison: None provided Findings: No restricted diffusion. No intra-axial mass or hemorrhage. No midline shift. No hydrocephalus. Vascular flow voids are intact. Orbital contents are unremarkable. The sinuses and mastoid air cells are clear. No focal bone lesion. The middle ear structures are unremarkable. There is no evidence of a paraganglioma or other mass. Seventh and 8th cranial nerves are normal. There is no evidence of a vascular malformation or displacement of the 7th and 8th cranial nerves. There media high-riding bulb on the right. IMPRESSION: Possible high-riding jugular bulb on the right. Evaluation for vascular causes or other bony pathology would be best accomplished with a temporal bone CT. MR cervical spine without gadolinium 11/07/24 Comparison: None provided Findings: Normal vertebral body alignment. C2-C3: No significant annular bulge or focal disc herniation. No neural foraminal narrowing is noted. There is disc desiccation. There is disc desiccation. C4-C5: there is mild disc space narrowing disc desiccation with bilateral neural foraminal narrowing. C5-C6: There is disc desiccation and disc space narrowing associated with a posterior osteophytic ridge disc complex deforming the anterior aspect of the dural sac. There appears to be significant bilateral neural foraminal narrowing at this level. C6-C7: Disc desiccation and disc space narrowing a posterior osteophytic ridge disc complex deforms the dural sac. There is bilateral neural foraminal narrowing at this level. C7-T1: There is no significant annular bulge or focal herniation. There does appear to be significant bilateral neural foraminal narrowing at this level. No acute fractures or pathologic bone lesions. Visualized intracranial contents are unremarkable. Soft tissues of the neck are normal. Cervical cord normal size and signal. Study is significantly limited by motion. C3-4: Small posterior osteophytic ridge and likely uncinate joint arthropathy narrows the bilateral neural foramina. IMPRESSION: 1. Limited examination secondary to motion particularly with regards to the axial images. 2. C3-4: Small posterior osteophytic ridge and likely uncinate joint arthropathy narrows the bilateral neural foramina. 3. C4-C5: there is mild disc space narrowing and disc desiccation with bilateral neural foraminal narrowing. 4. C5-6 and C6-7: There is disc desiccation and disc space narrowing associated with a posterior osteophytic ridge disc complexes deforming the anterior aspect of the dural sac. There appears to be significant bilateral neural foraminal narrowing at these levels. CT orbit BI w IV con 12/22/24 IMPRESSION: Normal CT orbits. No high riding right internal jugular bulb. Assessment & Plan Assessment & Plan (1) Cervical radiculopathy: Code(s): M54.12 - Radiculopathy, cervical region Category: Medical (2) Degenerative disc disease, cervical: Code(s): M50.30 - Other cervical disc degeneration, unspecified cervical region Category: Medical (3) Neuroforaminal stenosis of cervical spine: Code(s): M48.02 - Spinal stenosis, cervical region Category: Medical (4) Carpal tunnel syndrome, right: Code(s): G56.01 - Carpal tunnel syndrome, right upper limb Category: Medical (5) Ulnar neuropathy of right upper extremity: Code(s): G56.21 - Lesion of ulnar nerve, right upper limb Category: Medical Plan The plan includes referral to a Neurosurgeon for further evaluation of the cervical neuroforaminal stenosis. The patient declined the option of a neck MAYURI injection, preferring to address the underlying issue rather than masking symptoms. Physical therapy had provided temporary relief, and the patient is hopeful to benefit from upcoming cubital tunnel and carpal tunnel syndromes release on the right next week. All questions and concerns have been answered and patient agreed with the treatment plan. Follow up as needed. Patient was informed and verbally consented to the use of an ambient scribe for clinic note documentation during this visit. Orders: Referrals Neurosurgery Referral M48.02 - Spinal stenosis, cervical region, M50.30 - Other cervical disc degeneration, unspecified cervical region, M54.12 - Radiculopathy, cervical region Coding Level of Care Code Est Pt Level 4 (15620) Complex EM visit Add On G2211 Diagnoses Cervical radiculopathy M54.12 Degenerative disc disease, cervical M50.30 Neuroforaminal stenosis of cervical spine M48.02 Carpal tunnel syndrome, right G56.01 Ulnar neuropathy of right upper extremity G56.21
[2024-12-30 10:36] VITALS: BP 169/95; PULSE 78; O2SAT 98; BMI 23.8
--- OUTSIDE RECORDS SUMMARY | 2024-12-30 12:44 | XMS_ITS | Clinical Summary ---
Author Organization [facility] Address [address] [facility] [address] [place] [address] Phone Care Team Providers Care Servomechanism Designer Name Role Phone Kelton Gibbs MD Primary [...] topic Medical Devices Not on file Insurance [facility] [address] [address] [place] [id number] [facility] [address] [place] [id number] O O [place] [address] [place] [address] HMO Member Subscriber Plan / Payer ( fective 2018-Present) Name:Cecilio Cannon Relation to Subscriber:Self Name:FlakokelseyCecilio emery Payer ID:Not on file Type:O Address: [place] [id number] Care Teams Servomechanism Designer Relationship Specialty Start Date End Date Kelton Gibbs MD PCP - General Internal Medicine 04/30/19 Additional Source Comments The information contained in this document represents components of the legal health record. It is not the complete legal health record.[facility]
== END 2024-12-30 10:48 | disposition home or self-care (01) ==
LOC: HO.PMC 10:32
PROVIDERS: PCP Student in an Organized Health Care Education/Training Program; Visit Provider Nurse Practitioner Family
DX: M54.12 Radiculopathy, cervical region (principal); M50.30 Other cervical disc degeneration, unspecified cervical region; M48.02 Spinal stenosis, cervical region; G56.01 Carpal tunnel syndrome, right upper limb; G56.21 Lesion of ulnar nerve, right upper limb
CPT/HCPCS: 99214; G2211

== ENCOUNTER → 2024-12-30 10:32 | Outpatient (BNVA) | payer OTHER, SELFPAY | PROVIDERS: PCP Student in an Organized Health Care Education/Training Program; Visit Provider Nurse Practitioner Family | DX: Z71.2 Person consulting for explanation of examination or test findings (principal); M50.30 Other cervical disc degeneration, unspecified cervical region; M48.02 Spinal stenosis, cervical region; G56.01 Carpal tunnel syndrome, right upper limb; G56.21 Lesion of ulnar nerve, right upper limb | CPT/HCPCS: 99212 ==

== ENCOUNTER → 2024-12-30 11:07 | Outpatient (BNVA) | payer OTHER, SELFPAY | PROVIDERS: PCP Student in an Organized Health Care Education/Training Program; Visit Provider Emergency Medicine | DX: S06.2X0D Diffuse traumatic brain injury without loss of consciousness, subsequent encounter (principal); W22.8XXD Striking against or struck by other objects, subsequent encounter; H93.13 Tinnitus, bilateral; M54.2 Cervicalgia; G56.01 Carpal tunnel syndrome, right upper limb | CPT/HCPCS: 99213 ==

== ENCOUNTER 2025-01-11 09:20 | Outpatient (AMB) | payer OTHER, SELFPAY ==
--- NOTE | 2025-01-11 09:23 | MHC.OFFVIS ---
Vital Signs 01/11/25 09:30 Height 5 ft 9 in Weight 160 lb BMI 23.6 Handedness Right Intake Visit Reasons: Neck pain Intake Note: Cecilio is a 54 year old man who presents today for a follow up of his right shoulder status post right shoulder cortisone injection administered on 08/18/24. The patient states that he got no relief from the shoulder injection. He states that he is most bothered by his neck pain which radiates into his shoulder blades. He did recently have an MRI of his cervical spine which showed evidence of neural foraminal narrowing. The patient also states that he was scheduled to undergo right carpal tunnel release surgery but the procedure was denied by my insurance company?. He reports intermittent numbness and weakness in his right hand. He has been to physical therapy on his neck which involve traction and gave him temporary relief. Allergies bee pollen (bee stings) Allergy (Verified 01/11/25 09:30) Anaphylaxis walnut Allergy (Verified 01/11/25 09:30) Anaphylaxis Medication List - Last Reconciled 01/11/25 by Cedrick Traore MD alprazolam 0.25 mg PO BEDTIME PRN amlodipine-valsartan 10-160 mg 1 tab PO DAILY cyclobenzaprine 5 mg PO TID fluoxetine (Prozac) 10 mg PO DAILY ibuprofen 600 mg PO Q8H PRN magnesium oxide 500 mg PO .QHS trazodone 50 mg PO BEDTIME PFSH Medical History Insomnia Impingement of right shoulder Laceration of left middle finger HTN (hypertension) Surgical History (Updated 10/18/24 @ 09:11 by RODO Sequeira) Hx of tonsillectomy Social History Alcohol intake: current Patient Tobacco Use Status: Current everyday Tobacco user 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 Cannon presents with neck pain which radiates into his shoulder blades most likely due to the neural foraminal narrowing seen on his recent cervical spine MRI. The patient did not get any relief from the shoulder cortisone injection. Thus, I do not feel that his symptoms are coming from shoulder pathology. The patient's right shoulder MRI shows only mild degenerative changes, no evidence of labral or rotator cuff tearing. The patient can continue activities as tolerated from my standpoint. He may need to see a neurosurgeon for further evaluation of his cervical spine pathology. The patient will continue with his shoulder range motion exercises to prevent stiffness. Feel free to call me at any time should questions regarding his orthopedic management arise. I spent 21 minutes in reviewing the patient's records and imaging studies, seeing the patient and documenting in the medical record. Coding Level of Care Code Est Pt Level 3 (97344) Complex EM visit Add On G2211 Diagnoses Neck pain M54.2
[2025-01-11 09:30] VITALS: BMI 23.6
--- OUTSIDE RECORDS SUMMARY | 2025-01-11 10:10 | XMS_ITS | Clinical Summary ---
Author Organization [facility] Address [address] [facility] [address] [place] [phone] Phone Care Team Providers Care Outreach Specialist Name Role Phone Kelton Gibbs MD Primary [...] topic Medical Devices Not on file Insurance [facility] [address] [place], [place] [id number] [facility] [address] [place] [address] [place] [address] [address] [place] [address] HMO Member Subscriber Plan / Payer ( fective 2018-Present) Name:Cecilio Cannon Relation to Subscriber:Self Name:FlakokelseyCecilio emery Payer ID:Not on file Type:O Address: [place] [id number] Care Teams Outreach Specialist Relationship Specialty Start Date End Date Kelton Gibbs MD PCP - General Internal Medicine 04/30/19 Additional Source Comments The information contained in this document represents components of the legal health record. It is not the complete legal health record.[facility]
== END 2025-01-11 09:33 | disposition home or self-care (01) ==
LOC: HO.HOS 09:20
PROVIDERS: PCP Student in an Organized Health Care Education/Training Program; Visit Provider Orthopaedic Surgery
DX: M54.2 Cervicalgia (principal)
CPT/HCPCS: 99213; G2211

== ENCOUNTER → 2025-01-11 09:20 | Outpatient (BNVA) | payer OTHER, SELFPAY | PROVIDERS: PCP Student in an Organized Health Care Education/Training Program; Visit Provider Orthopaedic Surgery | DX: M54.2 Cervicalgia (principal); M25.511 Pain in right shoulder | CPT/HCPCS: 99212 ==

== ENCOUNTER → 2025-02-01 07:49 | Outpatient (BNVA) | payer OTHER, SELFPAY | PROVIDERS: PCP Student in an Organized Health Care Education/Training Program; Visit Provider Emergency Medicine | DX: M54.2 Cervicalgia (principal); H93.11 Tinnitus, right ear | CPT/HCPCS: 99214 ==

== ENCOUNTER → 2025-03-01 08:28 | Outpatient (BNVA) | payer OTHER, SELFPAY | PROVIDERS: PCP Student in an Organized Health Care Education/Training Program; Visit Provider Emergency Medicine | DX: M54.2 Cervicalgia (principal) | CPT/HCPCS: 99213 ==